=== PATIENT | female | born 1950 | race Caucasian/White ===

== ENCOUNTER → 2020-06-19 13:45 | Outpatient (BNVA) | payer BC, SELFPAY | PROVIDERS: PCP Internal Medicine; Referring Provider Internal Medicine; Visit Provider Nurse Practitioner Family ==

== ENCOUNTER 2020-06-20 07:19 | Outpatient (REF) | payer MEDICARE, SELFPAY ==
--- NOTE | 2020-06-20 07:38 | ECG_ITS ---
Test Reason : CARDIAC ARRHYTHMIAS Blood Pressure : / mmHG Vent. Rate : 074 BPM Atrial Rate : 074 BPM P-R Int : 156 ms QRS Dur : 078 ms QT Int : 392 ms P-R-T Axes : 063 035 045 degrees QTc Int : 435 ms Normal sinus rhythm Nonspecific ST abnormality Abnormal ECG When compared with ECG of 19-APR-2015 11:55, No significant change was found Referred By: Nathanael Moreno Electronically Signed By:Ezra Hickman
[2020-06-20 08:08] LABS: MANUAL DIFF FLAG NO
[2020-06-20 08:26] LABS: Basophils Absolute Auto 0.1 X10*3/uL (0.0-0.2); Basophils Percent Auto 1.1 % (0-2); Eosinophils Absolute Auto 0.3 X10*3/uL (0.0-0.4); Eosinophils Percent Auto 3.8 % (0-4); Hematocrit 44.4 % (37-47); Hemoglobin 14.8 g/dl (12.0-16.0); Imm Gran Abs Auto 0.03 X10*3/uL (0.00-0.03); Imm Gran Pct Auto 0.5 % (0.0-0.4); Lymphocytes Percent Auto 30.2 % (20-40); Mean Corpuscular HGB Conc 33.3 g/dl (31.0-35.0); Mean Corpuscular Hemoglobin 30.3 pg (27.0-33.0); Mean Platelet Volume 12.5 fL (9.4-12.3); Monocytes Absolute Auto 0.5 X10*3/uL (0.1-1.2); Monocytes Percent Auto 7.8 % (2-11); Neutrophils Absolute Auto 3.7 X10*3/uL (2.0-8.3); Neutrophils Percent Auto 56.6 % (45-73); Platelet Count 166 X10*3/uL (160-400); Red Blood Count 4.88 X10*6/uL (4.20-5.50); Red Cell Distribution Width 12.9 % (11.0-16.0); White Blood Count 6.6 X10*3/uL (4.8-10.8)
[2020-06-20 08:31] LABS: Anion Gap 13 (12-20); Blood Urea Nitrogen 20 mg/dL (9-16); Carbon Dioxide 28 mmol/L (22-29); Chloride 106 mmol/L (96-108); Potassium 4.2 mmol/L (3.3-5.1); Sodium 143 mmol/L (135-145)
[2020-06-20 08:32] LABS: Alanine Aminotransferase 31 U/L (0-31); Albumin Level 4.5 g/dL (3.5-5.0); Alkaline Phosphatase 53 U/L (39-117); Aspartate Amino Transferase 22 U/L (5-31); Bilirubin Total 0.7 mg/dL (0.0-1.0); Calcium 9.7 mg/dL (8.4-10.2); Cholesterol 210 mg/dL; Estimated Glomerular Filt Rate > 60; Glucose Random 106 mg/dL (60-115); HDL Cholesterol 49 mg/dL; LDL Cholesterol Calculated 144 mg/dl; Total Protein 6.9 g/dL (6.5-8.0); Triglycerides 86 mg/dL
[2020-06-20 08:54] LABS: Free T4 (Free Thyroxine) 1.06 ng/dL (0.71-1.85); Thyroid Stimulating Hormone 1.85 uIU/mL (0.32-4.0); Vitamin D 25-OH Total 42.5 ng/mL (>30)
[2020-06-20 09:19] LABS: Estimated Average Glucose 100 mg/dL; Hemoglobin A1c % 5.1 %
[2020-06-20 09:27] LABS: Glucose Urine UA NEG (NEG); Leukocyte Esterase Urine 1+ (NEG); Nitrite Urine NEG (NEG); PH 6.5 (5.0-8.0); Specific Gravity - Urine 1.025 (1.005-1.025); Urine Blood NEG (NEG); Urine Ketones NEG (NEG); Urine Protein NEG (NEG-TRACE)
[2020-06-20 09:34] LABS: Appearance Urine HAZY; Color Urine YELLOW
[2020-06-20 09:38] LABS: Folate 15.1 ng/mL (> or = 4.0); Vitamin B12 373 pg/mL (200-900)
[2020-06-20 09:50] LABS: Bacteria Urine 1+ /LPF; RBC Urine 0 /HPF (0); Squamous Epithelial Cell Urine 3+ /LPF
== END 2020-06-20 07:20 | disposition home or self-care (01) ==
LOC: HO.LAB 07:19
PROVIDERS: PCP Internal Medicine; Visit Provider Internal Medicine
DX: I49.9 Cardiac arrhythmia, unspecified (principal); E78.00 Pure hypercholesterolemia, unspecified
CPT/HCPCS: 36415; 80053; 80061; 81001; 82306; 82607; 82746; 83036; 84439; 84443; 85025; 93005

== ENCOUNTER 2020-08-17 06:18 | Day surgery (SDC) | payer BC, SELFPAY ==
[2020-08-10 09:50] VITALS: BMI 30.2
--- NOTE | 2020-08-16 08:38 | P.CONAN_ITS ---
Documented by User: Consuelo Changney 08/16/20 09:44 HPI - Anesthesia Eval Consult details Narrative: 69yo F for Colonoscopy Per PCP patient is at low risk for any cardiac complications. No further workup needed this time T/C with Lina ENGAGEMENT SPECIALIST - PCP clearance OK, no cardiology visit needed. [facility] Active Problems Active Problems: All Active Problems (Updated 08/10/20 @ 09:34 by Destiny Oleary) Allergic rhinitis (Acute) Arrhythmia (Acute) Impaired glucose tolerance (Acute) Tubular adenoma of colon (Acute) Osteoarthritis (Acute) Hypercholesterolemia (Acute) Degenerative disc disease, lumbar (Acute) Anxiety (Acute) Past Medical History Medical History Anxiety Carpal tunnel syndrome on both sides Degenerative disc disease, lumbar History of COVID-19 Hypercholesterolemia Neck pain Obesity (BMI 30-39.9) Osteoarthritis Osteoarthritis of left knee Restless leg syndrome Thrombocytopenia Tubular adenoma of colon Varicose vein of leg Vitamin D deficiency Family History Family History Father Dementia Mother Lung cancer Brother Prostate cancer Surgical History Surgical History H/O breast biopsy H/O repair of rotator cuff History of colonoscopy History of stapedectomy History of surgery History of tonsillectomy History of total right knee replacement Social History Social History (Updated 08/10/20 @ 09:52 by Destiny Oleary) Alcohol intake: current Alcohol intake frequency: a few times a month Patient Tobacco Use Status: Former Tobacco user Quit Date: 2004 Use of substances other than those prescribed or required for medical reasons: Yes Substance Use Type: Marijuana Substance Use Frequency: Occasionally Are you DNR?: No Advance Directives: No Advance Directives Information Provided: No Advance Directives on File: No Meds Allergies Allergy/AdvReac Type Severity Reaction Status Date / Time amoxicillin [AMOXICILLIN] Allergy Severe ITCHINESS, Verified 08/17/20 06:32 hives, itching, scratchy throat feathers Allergy Severe ITCHINESS Verified 08/17/20 06:32 hydromorphone [HYDROMORPHONE] Allergy Severe REDNESS,itc Verified 08/17/20 06:32 maggie,hives penicillin V Allergy Severe Itching,hiv Verified 08/17/20 06:32 es shellfish derived Allergy Severe Hives, Verified 08/17/20 06:32 itching Sulfa (Sulfonamide Allergy Severe ITCHINESS,h Verified 08/17/20 06:32 Antibiotics) renetta [SULFA (SULFONAMIDE ANTIBIOTICS)] latex [LATEX] Allergy Intermediate SWELLING/HI Verified 08/17/20 06:32 VES succinylcholine Allergy Intermediate COULDN'T Verified 08/17/20 06:32 [SUCCINYLCHOLINE] MOVE LEGS levofloxacin [From LEVAQUIN] AdvReac Severe HALLUCINATI Verified 08/17/20 06:32 ONS clams Allergy Severe Anaphylaxis Uncoded 08/10/20 09:40 shell fish Allergy Severe Anaphylaxis Uncoded 08/10/20 09:46 NO MRI due to metal in the Allergy Unknown Unknown Uncoded 11/30/19 14:58 ear Home Medications Medication Instructions Recorded Confirmed Last Taken Type aspirin 81 mg tablet,delayed 81 mg PO 3XW tab 02/06/20 08/10/20 08/14/20 08:00 History release cetirizine 10 mg tablet 5 mg PO DAILY 02/06/20 08/10/20 08/17/20 06:15 History lorazepam 1 mg PO BEDTIME 08/10/20 08/10/20 Unknown History ropinirole 1 tab PO BEDTIME 08/10/20 08/10/20 Unknown History Exam Exam Date and Time: August 16, 2020 0838 Height,Weight and Vital Signs: Height 5 ft Weight 70.307 kg Narrative Narrative: EKG 06/2020 Vent. Rate : 074 BPM Atrial Rate : 074 BPM P-R Int : 156 ms QRS Dur : 078 ms QT Int : 392 ms P-R-T Axes : 063 035 045 degrees QTc Int : 435 ms Normal sinus rhythm Nonspecific ST abnormality Abnormal ECG When compared with ECG of 19-APR-2015 11:55, No significant change was found Assessment and Plan Assessment Anesthesia Assessment: Chart Reviewed Documented by User: Sushila Segura 08/17/20 07:10 [facility] Past Medical History Medical History Anxiety Carpal tunnel syndrome on both sides Degenerative disc disease, lumbar History of COVID-19 Hypercholesterolemia Neck pain Obesity (BMI 30-39.9) Osteoarthritis Osteoarthritis of left knee Restless leg syndrome Thrombocytopenia Tubular adenoma of colon Varicose vein of leg Vitamin D deficiency Family History Family History Father Dementia Mother Lung cancer Brother Prostate cancer Surgical History Surgical History H/O breast biopsy H/O repair of rotator cuff History of colonoscopy History of stapedectomy History of surgery History of tonsillectomy History of total right knee replacement Social History Social History (Updated 08/10/20 @ 09:52 by Destiny Oleary) Alcohol intake: current Alcohol intake frequency: a few times a month Patient Tobacco Use Status: Former Tobacco user Quit Date: 2004 Use of substances other than those prescribed or required for medical reasons: Yes Substance Use Type: Marijuana Substance Use Frequency: Occasionally Are you DNR?: No Advance Directives: No Advance Directives Information Provided: No Advance Directives on File: No Meds Allergies Allergy/AdvReac Type Severity Reaction Status Date / Time amoxicillin [AMOXICILLIN] Allergy Severe ITCHINESS, Verified 08/17/20 06:32 hives, itching, scratchy throat feathers Allergy Severe ITCHINESS Verified 08/17/20 06:32 hydromorphone [HYDROMORPHONE] Allergy Severe REDNESS,itc Verified 08/17/20 06:32 maggie,hives penicillin V Allergy Severe Itching,hiv Verified 08/17/20 06:32 es shellfish derived Allergy Severe Hives, Verified 08/17/20 06:32 itching Sulfa (Sulfonamide Allergy Severe ITCHINESS,h Verified 08/17/20 06:32 Antibiotics) renetta [SULFA (SULFONAMIDE ANTIBIOTICS)] latex [LATEX] Allergy Intermediate SWELLING/HI Verified 08/17/20 06:32 VES succinylcholine Allergy Intermediate COULDN'T Verified 08/17/20 06:32 [SUCCINYLCHOLINE] MOVE LEGS levofloxacin [From LEVAQUIN] AdvReac Severe HALLUCINATI Verified 08/17/20 06:32 ONS clams Allergy Severe Anaphylaxis Uncoded 08/10/20 09:40 shell fish Allergy Severe Anaphylaxis Uncoded 08/10/20 09:46 NO MRI due to metal in the Allergy Unknown Unknown Uncoded 11/30/19 14:58 ear Home Medications Medication Instructions Recorded Confirmed Last Taken Type aspirin 81 mg tablet,delayed 81 mg PO 3XW tab 02/06/20 08/10/20 08/14/20 08:00 History release cetirizine 10 mg tablet 5 mg PO DAILY 02/06/20 08/10/20 08/17/20 06:15 History lorazepam 1 mg PO BEDTIME 08/10/20 08/10/20 Unknown History ropinirole 1 tab PO BEDTIME 08/10/20 08/10/20 Unknown History Exam Airway Mallampati Class: II TM Dist: >3cm Neck ROM: Full Heart: rrr Lungs: cta Assessment and Plan Assessment Anesthesia Assessment: Anesthesia Plan Discussed and Chart Reviewed Final Anesthetic Review NPO: Yes ASA Class: II Final Preanesthetic Review: No Changes in Pt Med Stat and Consent Obtained/Reviewed Patient Risk: Intermediate Procedure Risk: Intermediate Anesthetic Plan Anesthetic Plan: MAC: Disposition: Standard PACU
[2020-08-17 06:42] VITALS: BP 139/73; PULSE 84; RESP 18; TEMP 36.5; O2SAT 97
[2020-08-17] MEDS: Lactated Ringers 1,000 ML 100 ML IVCONT (06:57)
--- NOTE | 2020-08-17 07:23 | P.HPSUR_ITS ---
Pre-Procedural Eval Section A Date of Service: 08/17/20 The patient is an INPATIENT: No The History & Physical has been completed within 30 days and I have reviewed it.: No Section B Chief Complaint: benign neoplasm Details of Present Illness: colon cancer screening, hx of colon polyps Relevant Family History (Specify if Yes): No Relevant Social History: Tobacco Use (former smoker) Present Medications: see Short Stay Collaborative assessment Medical History: Significant History (nxiety Carpal tunnel syndrome on both sides Degenerative disc disease, lumbar Hypercholesterolemia Obesity (BMI 30- 39.9) Osteoarthritis Osteoarthritis of left knee Restless leg syndrome Thrombocytopenia Tubular adenoma of colon Varicose vein of leg Vitamin D deficiency) History of Previous Operations: Relevant previous surgery/procedure and date(s) (H/O breast biopsy H/O repair of rotator cuff History of colonoscopy History of stapedectomy History of surgery History of tonsillectomy History of total right knee replacement) Allergies: Allergies Allergy/AdvReac Type Severity Reaction Status Date / Time amoxicillin [AMOXICILLIN] Allergy Severe ITCHINESS, Verified 08/17/20 06:32 hives, itching, scratchy throat feathers Allergy Severe ITCHINESS Verified 08/17/20 06:32 hydromorphone [HYDROMORPHONE] Allergy Severe REDNESS,itc Verified 08/17/20 06:32 maggie,hives penicillin V Allergy Severe Itching,hiv Verified 08/17/20 06:32 es shellfish derived Allergy Severe Hives, Verified 08/17/20 06:32 itching Sulfa (Sulfonamide Allergy Severe ITCHINESS,h Verified 08/17/20 06:32 Antibiotics) renetta [SULFA (SULFONAMIDE ANTIBIOTICS)] latex [LATEX] Allergy Intermediate SWELLING/HI Verified 08/17/20 06:32 VES succinylcholine Allergy Intermediate COULDN'T Verified 08/17/20 06:32 [SUCCINYLCHOLINE] MOVE LEGS levofloxacin [From LEVAQUIN] AdvReac Severe HALLUCINATI Verified 08/17/20 06:32 ONS clams Allergy Severe Anaphylaxis Uncoded 08/10/20 09:40 shell fish Allergy Severe Anaphylaxis Uncoded 08/10/20 09:46 NO MRI due to metal in the Allergy Unknown Unknown Uncoded 11/30/19 14:58 ear Review of Systems Sugical H&P ROS: Negative: Cardiovascular, Respiratory and Gastrointestinal and Yes, Specify: Constitution (Obese) Exam Surgical H&P Exam: Normal: Heart, Normal: Lungs, Normal: Extremities and Normal: Abdomen Plan Diagnosis/Plan: Unchanged I have reviewed the history and physical and performed a pertinent physical examination on my patient. No changes have occurred unless specified.
--- NOTE | 2020-08-17 07:23 | P.OP_ITS ---
Operative Note Operative Note Date of Service: 08/17/20 Narrative: Pre-op diagnosis: Colon cancer screening Post-op diagnosis: other ( colon polyps, diverticulosis, hemorrhoids) Procedure: COLONOSCOPY TILL CECUM WITH BIOPSIES Consent: Indications for the procedure and potential complications of bleeding, perforation, reaction to medications and missed diagnosis were discussed with the patient and informed consent was obtained. Instrument: Olympus PCF H 190 L variable stiffness pediatric colonoscope Monitoring: Vital signs and clinical assessment, intermittent blood pressure monitoring, continuous EKG monitoring, Pulse oximetry and Carbon Dioxide monitoring were done throughout the procedure. Colon withdrawl time was 15 minutes. Procedure: The patient was placed in the left lateral decubitis position and pre-procedure medications were administered. After a digital rectal examination of the ano-rectum, the video colonoscope was inserted into the rectum and advanced through the colon to the cecum. The colonoscope was slowly withdrawn in a retrograde panoramic fashion and the colon mucosa was carefully examined including a retroflexed view of the rectum. Findings and interventions are described below. Procedure Difficulty: Without difficulty Findings: Terminal Ileum: Not evaluated Cecum: a 3-4 mm sessile polyp removed with a cold biopsy Ascending Colon: Two 4-5 mm sessile polyps removed with a cold biopsy and moderate diverticulosis Transverse Colon: moderate diverticulosis Descending Colon: moderate diverticulosis Sigmoid Colon: Moderate diverticulosis Rectum: Normal Ano-rectum: Small internal hemorrhoids and perianal skin tags Colon preparation: Good after some irrigation Impression and Post Procedure Diagnosis: Colonoscopy Findings: Three small polyps removed Moderate diverticulosis seen in the entire colon Small hemorrhoids on retroflexed exam. Plan: Await pathology results Patient has an appointment on 08/24/20 in the [facility] with Melissa Webster FNP- [facility] . Repeat Colonoscopy interval based on path results - in 3-5 years if polyps are adenomatous and due to a hx of adenomatous colon polyps. Above findings were reviewed with the patient and colon polyps and diverticulosis handouts were given in the discharge area Surgeon: Neri Anaya MD Anesthesia: MAC (Dr Mistry) Was an Cash Applications Analyst used for this Procedure?: Yes Cash Applications Analyst: Akil Jimenez Estimated blood loss (mL): 0 Pathology: other (A- POLYP CECUM B- ASCENDING COLON POLYPS) Condition: stable Disposition: PACU
[2020-08-17 08:11] VITALS: BP 113/65; PULSE 76; RESP 16; TEMP 36.4; O2SAT 95
[2020-08-17 08:26] VITALS: BP 105/64; PULSE 73; RESP 16; O2SAT 95
[2020-08-17 08:29] VITALS: BP 122/73; PULSE 73; RESP 18; TEMP 36.4; O2SAT 95
== END 2020-08-17 09:22 | disposition home or self-care (01) ==
PROVIDERS: PCP Internal Medicine; Visit Provider Internal Medicine Gastroenterology
PROC: 0DJD8ZZ Inspection of Lower Intestinal Tract, Via Natural or Artificial Opening Endoscopic (ICD-10-PCS; CPT 45378; principal; 2020-08-17 07:30)
DX: Z12.11 Encounter for screening for malignant neoplasm of colon (principal); Z86.010 Personal history of colon polyps; D12.2 Benign neoplasm of ascending colon; K63.5 Polyp of colon; K57.30 Diverticulosis of large intestine without perforation or abscess without bleeding; K64.8 Other hemorrhoids; K64.4 Residual hemorrhoidal skin tags; K58.9 Irritable bowel syndrome, unspecified; D69.6 Thrombocytopenia, unspecified; Z86.16 Personal history of COVID-19; Z79.82 Long term (current) use of aspirin; Z79.899 Other long term (current) drug therapy; Z88.1 Allergy status to other antibiotic agents; Z88.2 Allergy status to sulfonamides; Z88.8 Allergy status to other drugs, medicaments and biological substances; Z91.040 Latex allergy status; Z87.891 Personal history of nicotine dependence
CPT/HCPCS: 45380; 88305

== ENCOUNTER → 2020-08-24 12:45 | Outpatient (BNVA) | payer BC, SELFPAY | PROVIDERS: PCP Internal Medicine; Referring Provider Internal Medicine; Visit Provider Nurse Practitioner Family ==

== ENCOUNTER 2020-11-13 07:40 | Outpatient (REF) | payer MEDICARE, SELFPAY ==
[2020-11-13 09:00] LABS: Alanine Aminotransferase 34 U/L (0-31); Albumin Level 4.3 g/dL (3.5-5.0); Alkaline Phosphatase 50 U/L (39-117); Anion Gap 13 (12-20); Aspartate Amino Transferase 23 U/L (5-31); Bilirubin Total 0.9 mg/dL (0.0-1.0); Blood Urea Nitrogen 17 mg/dL (9-16); Calcium 9.5 mg/dL (8.4-10.2); Carbon Dioxide 26 mmol/L (22-29); Chloride 108 mmol/L (96-108); Cholesterol 195 mg/dL; Estimated Glomerular Filt Rate > 60; Glucose Random 106 mg/dL (60-115); HDL Cholesterol 42 mg/dL; LDL Cholesterol Calculated 134 mg/dl; Potassium 4.2 mmol/L (3.3-5.1); Sodium 143 mmol/L (135-145); Total Protein 6.6 g/dL (6.5-8.0); Triglycerides 98 mg/dL
[2020-11-13 09:05] LABS: Estimated Average Glucose 97 mg/dL
[2020-11-13 09:21] LABS: Appearance Urine CLEAR; Color Urine STRAW; Glucose Urine UA NEG (NEG); Leukocyte Esterase Urine NEG (NEG); Nitrite Urine NEG (NEG); Urine Blood NEG (NEG); Urine Ketones NEG (NEG); Urine Protein NEG (NEG-TRACE)
[2020-11-13 09:37] LABS: RBC Urine 0-2 /HPF (0); Squamous Epithelial Cell Urine 1+ /LPF; WBC Urine 0-2 /HPF (0-4)
[2020-11-17 00:31] LABS: Magnesium, RBC 7.1 mg/dL (4.0-6.4)
[2020-11-18 22:51] LABS: Estrogen 126.3 pg/mL
== END 2020-11-13 07:41 | disposition home or self-care (01) ==
LOC: HO.LAB 07:40
PROVIDERS: PCP Internal Medicine; Visit Provider Internal Medicine
DX: E78.00 Pure hypercholesterolemia, unspecified (principal); F41.9 Anxiety disorder, unspecified; I49.9 Cardiac arrhythmia, unspecified; R73.02 Impaired glucose tolerance (oral); M85.80 Other specified disorders of bone density and structure, unspecified site; Z12.31 Encounter for screening mammogram for malignant neoplasm of breast
CPT/HCPCS: 36415; 80053; 80061; 81001; 82672; 83036; 83735

== ENCOUNTER 2020-11-13 08:19 | Outpatient (REF) | payer MEDICARE, SELFPAY ==
--- NOTE | ~2020-11-13 | MM_ITS ---
EXAMINATION: BONE DENSITOMETRY CLINICAL INDICATION: Osteopenia. COMPARISON: Previous BD dated 10/15/2017 and baseline BD dated 05/22/2006. TECHNIQUE: Using a [employer] DXA System (software version: 13.1) manufactured by [employer], dual-energy x-ray absorptiometry was performed of the lumbar spine and left hip. The images are of good technical quality. Summary results are attached. FINDINGS: AP SPINE L1-L4: Current: BMD 1.074 g/cm2, Z-score 0.5, T-score -0.9, normal, 7.3% decrease from previous, 1.5% decrease from baseline (<5% change is not significant). Prior: BMD 1.158 g/cm2. Baseline: BMD 1.090 g/cm2. LEFT FEMUR, NECK: Current: BMD 0.685 g/cm2, Z-score -1.0, T-score -2.5, osteoporosis. Prior: BMD 0.811 g/cm2. Baseline: BMD 0.796 g/cm2. LEFT FEMUR, TOTAL: Current: BMD 0.862 g/cm2, Z-score 0.1, T-score -1.2, osteopenia, 3.7% decrease from previous, 8.9% decrease from baseline (<5% change is not significant). Prior: BMD 0.895 g/cm2. Baseline: BMD 0.946 g/cm2. IDENTIFIED RISK FACTORS: Menopause. HISTORY OF FRACTURE: None listed. MEDICATIONS: Calcium, vitamin D. MM/XR DEXA axial skeleton IMPRESSION: 1. DIAGNOSIS: Osteoporosis based on the lowest T-score value of -2.5 in the femoral neck applying World Health Organization criteria. 2. 10-YEAR FRACTURE RISK PREDICTION, FRAX: Major osteoporotic fracture (clinical spine, forearm, hip or shoulder) 14.5%. Hip fracture 3.8%. 3. Treatment Recommendations: NOF guidelines recommend consideration for treatment in postmenopausal women and men age 50 and older presenting with the following: -A hip or vertebral (clinical or morphometric) fracture. -T-score less than or equal to -2.5 at the femoral neck or spine after appropriate evaluation to exclude secondary causes. -Low bone mass at the hip or spine and a 10-year fracture probability by FRAX of greater than or equal to 3% for hip fracture or greater than or equal to 20% for major osteoporotic fracture based on the [place] adapted WHO algorithm. 4. Other Recommendations: All treatment decisions require clinical judgment and consideration of individual patient factors, including patient preferences, comorbidities, previous drug use, risk factors not captured in the FRAX model (e.g. frailty, falls, vitamin D deficiency, increased bone turnover, interval significant decline in bone density) and possible under or overestimation of fracture risk by FRAX. Additional medical evaluation for secondary cause of low bone mineral density may be appropriate. FUTURE SCAN RECOMMENDATION: People with diagnosed cases of osteoporosis or at high risk for fracture should have regular bone mineral density tests. For patients eligible for Medicare, routine testing is allowed once every 2 years. The testing frequency can be increased to one year for patients who have rapidly progressing disease, those who are receiving or discontinuing medical therapy to restore bone mass, or have additional risk factors.
--- NOTE | ~2020-11-13 | MM_ITS ---
EXAMINATION: MM SCREENING DIGITAL BREAST TOMOSYNTHESIS, BILATERAL CLINICAL INFORMATION: Screening. Asymptomatic. The lifetime risk of breast cancer based on the Tyrer-Cuzick Model is 3%. COMPARISON: Mammography: 12/02/2018, 10/15/2017, 09/16/2016 TECHNIQUE: Digital breast tomosynthesis is performed in both the craniocaudal and mediolateral oblique views along with computer-aided detection (CAD). Synthesized 2D images are generated from the tomosynthesis. FINDINGS: There are scattered areas of fibroglandular density (ACR BI-RADS breast composition Category b). There are no significant masses, abnormal calcifications, or other abnormalities. Breast tissue composition borders on heterogeneously dense. There is fine fibronodular parenchymal pattern similar to prior exams. Biopsy clip marker again seen mid upper outer right breast. Skin contours are smooth. MM/MM tomosynthesis screening BI IMPRESSION: No mammographic evidence of malignancy. ASSESSMENT: BI-RADS 2: Benign RECOMMENDATION: Routine annual mammography screening. This patient's information was entered into a reminder system with a target due date for their next mammogram.
== END 2020-11-13 08:20 | disposition home or self-care (01) ==
LOC: HO.MAMMO 08:19
PROVIDERS: Visit Provider Internal Medicine
DX: Z12.31 Encounter for screening mammogram for malignant neoplasm of breast (principal); M85.80 Other specified disorders of bone density and structure, unspecified site; Z78.0 Asymptomatic menopausal state; R73.02 Impaired glucose tolerance (oral); I49.9 Cardiac arrhythmia, unspecified; E78.00 Pure hypercholesterolemia, unspecified; F41.9 Anxiety disorder, unspecified
CPT/HCPCS: 77063; 77067; 77080

== ENCOUNTER 2021-06-24 07:34 | Outpatient (REF) | payer MEDICARE, SELFPAY ==
[2021-06-24 07:53] LABS: MANUAL DIFF FLAG NO
[2021-06-24 08:04] LABS: Basophils Absolute Auto 0.1 X10*3/uL (0.0-0.2); Basophils Percent Auto 1.3 % (0-2); Eosinophils Absolute Auto 0.2 X10*3/uL (0.0-0.4); Eosinophils Percent Auto 3.1 % (0-4); Hematocrit 41.9 % (37.0-47.0); Imm Gran Abs Auto 0.03 X10*3/uL (0.00-0.03); Imm Gran Pct Auto 0.5 % (0.0-0.4); Lymphocytes Absolute Auto 1.8 X10*3/uL (1.2-4.9); Lymphocytes Percent Auto 29.8 % (20-40); Mean Corpuscular HGB Conc 33.4 g/dl (31.0-35.0); Mean Corpuscular Hemoglobin 30.4 pg (27.0-33.0); Mean Corpuscular Volume 90.9 fL (80.0-98.0); Mean Platelet Volume 12.3 fL (9.4-12.3); Monocytes Absolute Auto 0.5 X10*3/uL (0.1-1.2); Monocytes Percent Auto 8.9 % (2-11); Neutrophils Absolute Auto 3.4 x10*3/uL (2.0-8.3); Neutrophils Percent Auto 56.4 % (45-73); Platelet Count 138 X10*3/uL (160-400); Red Blood Count 4.61 X10*6/uL (4.20-5.50); Red Cell Distribution Width 13.1 % (11.0-16.0)
[2021-06-24 08:22] LABS: Estimated Average Glucose 100 mg/dL; Hemoglobin A1c % 5.1 %
[2021-06-24 08:36] LABS: Alanine Aminotransferase 26 U/L (0-31); Alkaline Phosphatase 51 U/L (39-117); Anion Gap 9 (12-20); Aspartate Amino Transferase 19 U/L (5-31); Bilirubin Total 0.9 mg/dL (0.0-1.0); Blood Urea Nitrogen 18 mg/dL (9-16); Calcium 9.8 mg/dL (8.4-10.2); Carbon Dioxide 28 mmol/L (22-29); Chloride 110 mmol/L (96-108); Cholesterol 179 mg/dL; Estimated Glomerular Filt Rate > 60; Glucose Random 105 mg/dL (60-115); HDL Cholesterol 45 mg/dL; LDL Cholesterol Calculated 119 mg/dl; Magnesium 2.1 mg/dL (1.6-2.6); Potassium 4.3 mmol/L (3.3-5.1); Sodium 143 mmol/L (135-145); Total Protein 6.6 g/dL (6.5-8.0); Triglycerides 79 mg/dL
[2021-06-24 08:56] LABS: Free T4 (Free Thyroxine) 1.06 ng/dL (0.71-1.85); Thyroid Stimulating Hormone 1.72 uIU/mL (0.32-4.0); Vitamin D 25-OH Total 39.4 ng/mL (>30)
[2021-06-24 10:00] LABS: Folate 12.8 ng/mL (> or = 4.0); Vitamin B12 390 pg/mL (200-900)
== END 2021-06-24 07:35 | disposition home or self-care (01) ==
LOC: HO.LAB 07:34
PROVIDERS: PCP Internal Medicine; Visit Provider Internal Medicine
DX: E78.00 Pure hypercholesterolemia, unspecified (principal); R73.02 Impaired glucose tolerance (oral); E55.9 Vitamin D deficiency, unspecified
CPT/HCPCS: 36415; 80053; 80061; 82306; 82607; 82746; 83036; 83735; 84439; 84443; 85025

== ENCOUNTER 2021-11-11 12:48 | Outpatient (REF) | payer MEDICARE, SELFPAY ==
[2021-11-12 12:23] LABS: Influenza A PCR NEGATIVE (Negative); Influenza B PCR NEGATIVE (Negative); Resp Syncy Virus RNA Qual PCR NEGATIVE (Negative); SARS COV2 PCR INHOUSE NEGATIVE (Negative)
== END 2021-11-11 12:49 | disposition home or self-care (01) ==
LOC: HO.LNP 12:48
PROVIDERS: Visit Provider Nurse Practitioner Family
DX: J06.9 Acute upper respiratory infection, unspecified (principal); Z20.822 Contact with and (suspected) exposure to COVID-19
CPT/HCPCS: 0241U

== ENCOUNTER 2021-11-26 10:40 | Outpatient (REF) | payer MEDICARE, SELFPAY ==
--- NOTE | ~2021-11-26 | MM_ITS ---
EXAMINATION: MM SCREENING DIGITAL BREAST TOMOSYNTHESIS, BILATERAL CLINICAL INFORMATION: Screening. Asymptomatic. The lifetime risk of breast cancer based on the Tyrer-Cuzick Model is 3%. COMPARISON: Mammography: 11/13/2020, 12/02/2018, 10/15/2017 TECHNIQUE: Digital breast tomosynthesis is performed in both the craniocaudal and mediolateral oblique views along with computer-aided detection (CAD). Synthesized 2D images are generated from the tomosynthesis. FINDINGS: There are scattered areas of fibroglandular density (ACR BI-RADS breast composition Category b). Parenchymal pattern is similar to prior studies. There is fine fibronodular parenchymal pattern without developing density or interval architectural abnormality or abnormal calcifications. Biopsy clip marker again seen mid outer right breast. The axilla and skin contours are unremarkable. MM/MM tomosynthesis screening BI IMPRESSION: No mammographic evidence of malignancy. ASSESSMENT: BI-RADS 2: Benign RECOMMENDATION: Routine annual mammography screening. This patient's information was entered into a reminder system with a target due date for their next mammogram.
== END 2021-11-26 10:41 | disposition home or self-care (01) ==
LOC: HO.MAMMO 10:40
PROVIDERS: PCP Internal Medicine; Visit Provider Internal Medicine
DX: Z12.31 Encounter for screening mammogram for malignant neoplasm of breast (principal)
CPT/HCPCS: 77063; 77067

== ENCOUNTER 2022-06-17 09:41 | Outpatient (REF) | payer MEDICARE, SELFPAY ==
[2022-06-17 09:53] LABS: MANUAL DIFF FLAG NO
[2022-06-17 10:01] LABS: Basophils Absolute Auto 0.1 X10*3/uL (0.0-0.2); Basophils Percent Auto 1.2 % (0-2); Eosinophils Absolute Auto 0.2 X10*3/uL (0.0-0.4); Eosinophils Percent Auto 3.3 % (0-4); Hematocrit 43.2 % (37.0-47.0); Hemoglobin 14.3 g/dl (12.0-16.0); Imm Gran Abs Auto 0.02 X10*3/uL (0.00-0.03); Imm Gran Pct Auto 0.4 % (0.0-0.4); Lymphocytes Absolute Auto 2.3 X10*3/uL (1.2-4.9); Lymphocytes Percent Auto 40.3 % (20-40); Mean Corpuscular HGB Conc 33.1 g/dl (31.0-35.0); Mean Corpuscular Volume 90.8 fL (80.0-98.0); Mean Platelet Volume 11.2 fL (9.4-12.3); Monocytes Absolute Auto 0.5 X10*3/uL (0.1-1.2); Monocytes Percent Auto 9.1 % (2-11); Neutrophils Absolute Auto 2.6 x10*3/uL (2.0-8.3); Neutrophils Percent Auto 45.7 % (45-73); Platelet Count 150 X10*3/uL (160-400); Red Blood Count 4.76 X10*6/uL (4.20-5.50); Red Cell Distribution Width 13.1 % (11.0-16.0); White Blood Count 5.7 X10*3/uL (4.8-10.8)
[2022-06-17 11:01] LABS: Estimated Average Glucose 100 mg/dL; Hemoglobin A1c % 5.1 %
[2022-06-17 12:19] LABS: Alanine Aminotransferase 30 U/L (0-31); Albumin Level 4.3 g/dL (3.5-5.0); Alkaline Phosphatase 39 U/L (39-117); Anion Gap 9 (12-20); Aspartate Amino Transferase 22 U/L (5-31); Bilirubin Total 1.5 mg/dL (0.0-1.0); Blood Urea Nitrogen 16 mg/dL (9-16); Carbon Dioxide 30 mmol/L (22-29); Chloride 109 mmol/L (96-108); Cholesterol 187 mg/dL; Estimated Glomerular Filt Rate > 60; Glucose Random 98 mg/dL (60-115); HDL Cholesterol 38 mg/dL; LDL Cholesterol Calculated 132 mg/dl; Potassium 4.3 mmol/L (3.3-5.1); Sodium 144 mmol/L (135-145); Total Protein 6.6 g/dL (6.5-8.0); Triglycerides 89 mg/dL
[2022-06-17 12:35] LABS: Folate 12.1 ng/mL (> or = 4.0); Free T4 (Free Thyroxine) 1.25 ng/dL (0.71-1.85); Thyroid Stimulating Hormone 1.23 uIU/mL (0.32-4.0); Vitamin B12 429 pg/mL (200-900); Vitamin D 25-OH Total 53.1 ng/mL (>30)
== END 2022-06-17 09:42 | disposition home or self-care (01) ==
LOC: HO.LAB 09:41
PROVIDERS: PCP Internal Medicine; Visit Provider Internal Medicine
DX: R73.02 Impaired glucose tolerance (oral) (principal); E78.00 Pure hypercholesterolemia, unspecified; M81.0 Age-related osteoporosis without current pathological fracture
CPT/HCPCS: 36415; 80053; 80061; 82306; 82607; 82746; 83036; 84439; 84443; 85025

== ENCOUNTER 2022-10-20 11:02 | Outpatient (REF) | payer MEDICARE, SELFPAY ==
[2022-10-20 14:08] LABS: MANUAL DIFF FLAG NO
[2022-10-20 14:30] LABS: Basophils Absolute Auto 0.1 X10*3/uL (0.0-0.2); Basophils Percent Auto 1.3 % (0-2); Eosinophils Absolute Auto 0.2 X10*3/uL (0.0-0.4); Eosinophils Percent Auto 2.7 % (0-4); Hematocrit 45.8 % (37.0-47.0); Hemoglobin 15.1 g/dl (12.0-16.0); Imm Gran Abs Auto 0.02 X10*3/uL (0.00-0.03); Imm Gran Pct Auto 0.3 % (0.0-0.4); Lymphocytes Absolute Auto 2.3 X10*3/uL (1.2-4.9); Lymphocytes Percent Auto 34.5 % (20-40); Mean Corpuscular Hemoglobin 30.5 pg (27.0-33.0); Mean Corpuscular Volume 92.5 fL (80.0-98.0); Mean Platelet Volume 12.9 fL (9.4-12.3); Monocytes Absolute Auto 0.6 X10*3/uL (0.1-1.2); Monocytes Percent Auto 8.6 % (2-11); Neutrophils Absolute Auto 3.6 x10*3/uL (2.0-8.3); Neutrophils Percent Auto 52.6 % (45-73); Platelet Count 177 X10*3/uL (160-400); Red Blood Count 4.95 X10*6/uL (4.20-5.50); Red Cell Distribution Width 12.9 % (11.0-16.0); White Blood Count 6.8 X10*3/uL (4.8-10.8)
[2022-10-20 14:41] LABS: Estimated Average Glucose 94 mg/dL; Hemoglobin A1c % 4.9 % (<6.0)
[2022-10-20 15:02] LABS: Alanine Aminotransferase 26 U/L (0-31); Albumin Level 4.3 g/dL (3.5-5.0); Alkaline Phosphatase 51 U/L (39-117); Anion Gap 11 (12-20); Aspartate Amino Transferase 22 U/L (5-31); Bilirubin Total 0.8 mg/dL (0.0-1.0); Blood Urea Nitrogen 14 mg/dL (9-16); C Reactive Protein 0.14 mg/dL (< or = 0.50); Calcium 10.1 mg/dL (8.4-10.2); Carbon Dioxide 28 mmol/L (22-29); Chloride 108 mmol/L (96-108); Estimated Glomerular Filt Rate > 60; Glucose Random 87 mg/dL (60-115); Magnesium 2.1 mg/dL (1.6-2.6); Sodium 143 mmol/L (135-145); Total Protein 7.1 g/dL (6.5-8.0)
[2022-10-20 15:07] LABS: Ferritin 199 ng/mL (10-250); Free T4 (Free Thyroxine) 1.01 ng/dL (0.71-1.85); Thyroid Stimulating Hormone 1.69 uIU/mL (0.32-4.0); Vitamin D 25-OH Total 57.3 ng/mL (>30)
[2022-10-20 15:11] LABS: Erythrocyte Sedimentation Rate 7 MM/HR (0-20)
[2022-10-20 15:16] LABS: Folate 11.6 ng/mL (> or = 4.0); Vitamin B12 387 pg/mL (200-900)
[2022-10-21 13:17] LABS: Rheumatoid Factor < 13.0 IU/mL (<15.0)
[2022-10-22 05:23] LABS: Lyme Abs Screen <0.90 index
== END 2022-10-20 11:03 | disposition home or self-care (01) ==
LOC: HO.WFDLDS 11:02
PROVIDERS: Visit Provider Internal Medicine
DX: M51.36 Other intervertebral disc degeneration, lumbar region (principal); E83.41 Hypermagnesemia; R73.02 Impaired glucose tolerance (oral); M19.90 Unspecified osteoarthritis, unspecified site; M81.0 Age-related osteoporosis without current pathological fracture; E78.00 Pure hypercholesterolemia, unspecified; E66.9 Obesity, unspecified
CPT/HCPCS: 36415; 80053; 82306; 82607; 82728; 82746; 83036; 83735; 84439; 84443; 85025; 85652; 86140; 86431; 86617; 86618

== ENCOUNTER 2022-10-21 12:38 | Outpatient (REF) | payer MEDICARE, SELFPAY | END 2022-10-21 12:39 | disposition home or self-care (01) | LOC: HO.WFDLDS 12:38 | PROVIDERS: Visit Provider Internal Medicine | DX: Z13.89 Encounter for screening for other disorder (principal) ==

== ENCOUNTER 2022-10-28 10:57 | Outpatient (AMB) | payer MEDICARE, SELFPAY ==
--- NOTE | 2022-10-28 10:58 | MHC.PC.OV ---
Vital Signs 10/28/22 10:59 Height 5 ft Weight 158 lb 8 oz BMI 31.0 BP 142/80 H Blood Pressure Location Lt brachial Position Sitting Pulse 75 Pulse Source Pulse Oximeter Pulse Oximetry (%) 97 Oxygen Delivery Method Room Air Intake Visit Reasons: Annual Exam Intake Note: Patient here for an annual physical exam Counter Helper Required: No Accompanied by: Self / Same As Patient Allergies amoxicillin [AMOXICILLIN] Allergy (Severe, Verified 10/28/22 11:02) ITCHINESS, hives, itching, scratchy throat feathers Allergy (Severe, Verified 10/28/22 11:02) ITCHINESS hydromorphone [HYDROMORPHONE] Allergy (Severe, Verified 10/28/22 11:02) REDNESS,itching,hives penicillin V Allergy (Severe, Verified 10/28/22 11:02) Itching,hives shellfish derived Allergy (Severe, Verified 10/28/22 11:02) Hives, itching Sulfa (Sulfonamide Antibiotics) [SULFA (SULFONAMIDE ANTIBIOTICS)] Allergy (Severe, Verified 10/28/22 11:02) ITCHINESS,hives latex [LATEX] Allergy (Intermediate, Verified 10/28/22 11:02) SWELLING/HIVES levofloxacin [From LEVAQUIN] Adverse Reaction (Severe, Verified 10/28/22 11:02) HALLUCINATIONS montelukast [From Singulair] Adverse Reaction (Intermediate, Verified 10/28/22 11:02) RLS clams Allergy (Severe, Uncoded 07/01/22 11:29) Anaphylaxis shell fish Allergy (Mild, Uncoded 07/01/22 11:29) Anaphylaxis NO MRI due to metal in the ear Allergy (Unknown, Uncoded 07/01/22 11:29) Unknown Medication List - Last Reconciled 10/28/22 by Nathanael Moreno, albuterol sulfate 90 mcg/actuation (ProAir HFA) 2 puffs inhalation Q6H PRN calcium carbonate (Tums) 200 mg PO BID calcium [id number] no.[id number] 260 mg calcium- 25 mcg-50 mg (Alive Calcium-Vitamin D3) 1 tab PO .QD cetirizine (Zyrtec) 10 mg PO DAILY clotrimazole-betamethasone 1-0.05 % 1 appl topical BID 2 weeks eszopiclone (Lunesta) 3 mg PO BEDTIME 90 days vitamin P-rrimpnkonjnb-rcxdkau 500 mg (Emergen-C) 1 tab PO BID zinc gluconate 50 mg PO DAILY Tobacco use date assessed: 07/01/22 Fall risk assessment: No Falls in past year Last assessed Fall Risk: 10/28/22 Dental Screening Dental Screen Date: 10/28/22 Did you have a dental visit in the last 12 months?: Yes Did you have a dental problem in the last 6 months where you did not have access to dental care?: No Was dental information given to patient?: Patient has dentist HPI Annual Exam HPI Details 72-year-old obese female with hypercholesterolemia impaired glucose tolerance osteoporosis last seen in June 2022 patient is here for annual well visit. Patient had elevated blood pressure the last time colonoscopy August 2020 mammogram due in November bone density November 2020 BP at home. goes to bathroom for BM TID [facility] Medical History (Updated 10/28/22 @ 11:41 by Nathanael Moreno MD) Neck pain History of COVID-19 Osteoarthritis Vitamin D deficiency Hypercholesterolemia Varicose vein of leg Carpal tunnel syndrome on both sides Tubular adenoma of colon Restless leg syndrome Thrombocytopenia Obesity (BMI 30-39.9) Degenerative disc disease, lumbar Anxiety Osteoarthritis of left knee Surgical History History of total right knee replacement H/O repair of rotator cuff History of surgery History of colonoscopy History of stapedectomy H/O breast biopsy History of tonsillectomy Family History Father Dementia Mother Lung cancer Brother Prostate cancer Social History (Updated 10/28/22 @ 11:45 by Nathanael Moreno MD) Housing: House Alcohol intake: current Alcohol intake frequency: a few times a month Patient Tobacco Use Status: Former Tobacco user Quit Date: 2004 Tobacco use type: Cigarette Years Smoked: quit 1999 e-Cigarette/Vaping Use: Never Used Second Hand Smoke Exposure: No Substance Use Type: Marijuana service: No Current occupational status: retired Cognitive needs: No Hearing needs: No Vision needs: Yes Questionnaire PHQ-9 Over the last 2 weeks, how often have you been bothered by any of the following problems? 1. Little interest or pleasure in doing things: not at all 2. Feeling down, depressed, or hopeless: not at all 3. Trouble falling or staying asleep, or sleeping too much: not at all 4. Feeling tired or having little energy: not at all 5. Poor appetite or overeating: not at all 6. Feeling bad about yourself - or that you are a failure or have let yourself or your family down: not at all 7. Trouble concentrating on things, such as reading the newspaper or watching television: not at all 8. Moving or speaking so slowly that other people could have noticed. Or the opposite - being so fidgety or restless that you have been moving around a lot more than usual: not at all 9. Thoughts that you would be better off or of hurting yourself in some way: not at all Total score: 0 Depression Screening Interpretation: Negative Source: Developed by Drs. Fausto Garcia, Corinna Barnes, Favio Dodd and colleagues, with an educational jeff from [employer]. Thrive Questionnaire Date Thrive assessed: 07/01/22 ISATU-7 AMB Questionnaire ISATU-7 Date ISATU - 7 assessed: 10/28/22 Feeling nervous, anxious, or on edge: 0 = Not at all Not being able to stop or control worryin = Not at all Worrying too much about different things: 0 = Not at all Trouble relaxin = Not at all Being so restless that it is hard to sit still: 0 = Not at all Becoming easily annoyed or irritable: 0 = Not at all Feeling afraid as if something awful might happen: 0 = Not at all Total ISATU-7 score (0-4 normal; 5-9 mild; 10-14 moderate; 15-21 severe): 0 Source: Developed by Drs. Fausto Garcia, Corinna Barnes, Favio Dodd and colleagues, with an educational jeff from [employer]. Review of Systems Const Denies poor appetite and Denies weakness Eyes Denies no additional complaints ENT Reports Normal hearing present, Denies dizziness, Denies nasal congestion, Denies tinnitus and Denies sore throat Card Denies chest pain, Denies syncope, Denies rapid heart rate and Denies dyspnea Resp Denies cough and Denies dyspnea GI Denies change in stool character, Reports constipation, Denies diarrhea, Denies nausea and Denies vomiting Denies urinary frequency, Denies difficulty voiding and Denies dysuria Neuro Reports Normal hearing present, Denies confusion, Denies dizziness, Denies syncope and Denies weakness Psych Denies confusion Physical exam (Primary Care) Vital Signs: Last Vital Signs Pulse 75 10/28/22 10:59 BP 142/80 H 10/28/22 10:59 Pulse Ox 97 10/28/22 10:59 Oxygen Delivery Method Room Air 10/28/22 10:59 BMI result Body Mass Index 31.0 Tobacco/Smoking Status: Tobacco use Status Tobacco use date assessed 07/01/22 10/28/22 11:03 Patient Tobacco Use Status Former Tobacco user 10/28/22 11:03 Tobacco use type Cigarette 10/28/22 11:03 e-Cigarette/Vaping Use Never Used 10/28/22 11:03 PHQ-9: PHQ-9 Score PHQ-9: Total score 0 10/28/22 11:03 Depression Screening Interpretation: Negative Thrive Assessment: Date of Thrive Assessment Date Thrive assessed 07/01/22 10/28/22 11:03 Const General: No confusion Orientation/consciousness: No confusion HENMT Head: Yes normocephalic Ears: external ears normal and TM's normal bilaterally Face and sinus: Yes normal facial exam Mouth: moist mucous membranes Throat: Yes tonsils normal Eyes Conjunctivae: conjunctivae normal Pupils: Equal, round and reactive pupils present and Pupil accommodation reflex normal Direct Ophthalmoscopy: normal light reflex Neck Neck: No lymphadenopathy Thyroid: Thyroid normal Chest Chest palpation & inspection: normal inspection of the chest Resp Effort & Inspection: normal respiratory effort and no audible wheezes Auscultation: clear to auscultation bilaterally, no crackles, no wheezes and lung sounds not diminished Cardio Rate: regular rate Rhythm: regular rhythm Peripheral pulses: radial pulses present and dorsalis pedis present GI Palpation (GI): no masses Auscultation: normal bowel sounds and normoactive bowel sounds Rectal Exam - Female: deferred Skin General skin exam: no rashes or lesions noted Rashes: no rashes Neuro General: No confusion Cranial nerves: Yes Equal, round and reactive pupils present and Yes Normal hearing present Cognition (Neuro): normal cognition Gait exam (Neuro): Normal gait present Motor exam (neuro): 5/5 motor strength present throughout Deep tendon reflexes (DTR's): Right brachioradialis reflex intensity grade: 2+, Left brachioradialis reflex intensity grade: 2+, Right patellar reflex intensity grade: 2+ and Left patellar reflex intensity grade: 2+ Extrem General: No edema Assessment and Plan Assessment & Plan (1) Obesity (BMI 30.0-34.9): Code(s): E66.9 - Obesity, unspecified Plan: Diet and exercise (2) Osteoporosis: Comment: November 2020 Code(s): M81.0 - Age-related osteoporosis without current pathological fracture Plan: Discussed about calcium and vitamin-D and medications to help with bone density (3) Impaired glucose tolerance: Code(s): R73.02 - Impaired glucose tolerance (oral) Plan: Decrease the amount of carbohydrate intake, pasta, bread, rice and potatoes are all sugar and that is aside from all the sweet stuff, remember that fruits are good but they are Sweet also. (4) Hypercholesterolemia: Code(s): E78.00 - Pure hypercholesterolemia, unspecified Plan: Avoid fried foods, chicken skin, eggs, butter margarine, pastries and meat. Be it pork or beef they have a lot of cholesterol LDL goal of less than 130 and triglyceride of less than 150 (5) Generalized anxiety disorder: Code(s): F41.1 - Generalized anxiety disorder (6) Blood pressure elevated without history of HTN: Code(s): R03.0 - Elevated blood-pressure reading, without diagnosis of hypertension Plan: Continue to monitor blood pressure (7) Annual physical exam: Code(s): Z00.00 - Encounter for general adult medical examination without abnormal findings Medications: New celecoxib (Celebrex) 200 mg PO DAILY 90 caps 1RF M19.90 - Unspecified osteoarthritis, unspecified site Refilled eszopiclone (Lunesta) 3 mg PO BEDTIME 90 days 90 tabs 0RF G47.00 - Insomnia, unspecified Coding Level of Care Code Est Pt Prev Care >65y(30990) Diagnoses Obesity (BMI 30.0-34.9) E66.9 Osteoporosis M81.0 Impaired glucose tolerance R73.02 Hypercholesterolemia E78.00 Generalized anxiety disorder F41.1 Blood pressure elevated without history of HTN R03.0 Annual physical exam Z00.00
[2022-10-28 10:59] VITALS: BP 142/80; PULSE 75; O2SAT 97; BMI 31.0
== END 2022-10-28 12:06 | disposition home or self-care (01) ==
PROVIDERS: Visit Provider Internal Medicine
DX: Z00.00 Encounter for general adult medical examination without abnormal findings (principal); E66.9 Obesity, unspecified; M81.0 Age-related osteoporosis without current pathological fracture; Z68.31 Body mass index [BMI] 31.0-31.9, adult; R73.02 Impaired glucose tolerance (oral); E78.00 Pure hypercholesterolemia, unspecified; F41.1 Generalized anxiety disorder; R03.0 Elevated blood-pressure reading, without diagnosis of hypertension
CPT/HCPCS: 99397

== ENCOUNTER 2023-06-26 08:33 | Outpatient (REF) | payer MEDICARE, SELFPAY ==
[2023-06-26 11:40] LABS: MANUAL DIFF FLAG NO
[2023-06-26 11:59] LABS: Basophils Absolute Auto 0.1 X10*3/uL (0.0-0.2); Basophils Percent Auto 1.2 % (0-2); Eosinophils Absolute Auto 0.1 X10*3/uL (0.0-0.4); Eosinophils Percent Auto 2.4 % (0-4); Hematocrit 43.7 % (37.0-47.0); Hemoglobin 14.7 g/dl (12.0-16.0); Imm Gran Abs Auto 0.03 X10*3/uL (0.00-0.03); Imm Gran Pct Auto 0.5 % (0.0-0.4); Lymphocytes Absolute Auto 1.6 X10*3/uL (1.2-4.9); Lymphocytes Percent Auto 26.7 % (20-40); Mean Corpuscular HGB Conc 33.6 g/dl (31.0-35.0); Mean Corpuscular Hemoglobin 31.6 pg (27.0-33.0); Mean Platelet Volume 12.6 fL (9.4-12.3); Monocytes Absolute Auto 0.5 X10*3/uL (0.1-1.2); Neutrophils Absolute Auto 3.6 x10*3/uL (2.0-8.3); Neutrophils Percent Auto 60.2 % (45-73); Platelet Count 159 X10*3/uL (160-400); Red Blood Count 4.65 X10*6/uL (4.20-5.50); Red Cell Distribution Width 13.4 % (11.0-16.0); White Blood Count 5.9 X10*3/uL (4.8-10.8)
[2023-06-26 12:07] LABS: Appearance Urine Cloudy; Color Urine Yellow; Glucose Urine UA Negative (Negative); Leukocyte Esterase Urine Negative (Negative); Nitrite Urine Negative (Negative); PH 7.5 (5.0-9.0); Specific Gravity - Urine 1.015 (1.005-1.025); Urine Blood Negative (Negative); Urine Ketones Negative (Negative); Urine Protein Negative (Neg-Trace)
[2023-06-26 12:11] LABS: Bacteria Urine None Seen (None Seen); Hyaline Casts Urine 0-2 /LPF (0-2); RBC Urine 0-2 /HPF (0-2); WBC Urine 0-5 /HPF (0-5)
[2023-06-26 12:31] LABS: Alanine Aminotransferase 17 U/L (0-31); Alkaline Phosphatase 39 U/L (39-117); Anion Gap 13 (12-20); Aspartate Amino Transferase 15 U/L (5-31); Bilirubin Total 1.2 mg/dL (0.0-1.0); Blood Urea Nitrogen 16 mg/dL (9-16); Calcium 9.8 mg/dL (8.4-10.2); Carbon Dioxide 25 mmol/L (22-29); Chloride 109 mmol/L (96-108); Cholesterol 172 mg/dL (<200); Estimated Glomerular Filt Rate > 60; Glucose Random 87 mg/dL (60-115); HDL Cholesterol 51 mg/dL (>40); LDL Cholesterol Calculated 107 mg/dL (<100); Potassium 3.8 mmol/L (3.3-5.1); Sodium 143 mmol/L (135-145); Total Protein 6.6 g/dL (6.5-8.0); Triglycerides 72 mg/dL (<150)
[2023-06-26 12:55] LABS: Free T4 (Free Thyroxine) 1.06 ng/dL (0.71-1.85); Thyroid Stimulating Hormone 1.25 uIU/mL (0.32-4.0)
[2023-06-26 12:56] LABS: Folate 11.2 ng/mL (> or = 4.0); Vitamin B12 297 pg/mL (200-900)
[2023-07-02 13:09] LABS: Testosterone, Total 36 ng/dL (2-45)
[2023-07-07 20:39] LABS: Estrogen 54 pg/mL
== END 2023-06-26 08:34 | disposition home or self-care (01) ==
LOC: HO.WFDLDS 08:33
PROVIDERS: Visit Provider Internal Medicine
DX: E78.00 Pure hypercholesterolemia, unspecified (principal); M81.0 Age-related osteoporosis without current pathological fracture; R30.0 Dysuria
CPT/HCPCS: 36415; 80053; 80061; 81001; 81003; 82607; 82672; 82746; 84403; 84439; 84443; 85025

== ENCOUNTER 2023-06-29 12:25 | Outpatient (AMB) | payer MEDICARE, SELFPAY ==
--- NOTE | 2023-06-29 12:41 | MHC.PC.OV ---
Vital Signs 06/29/23 12:42 Height 5 ft Weight 157 lb 0.4 oz BMI 30.7 BP 126/64 Blood Pressure Location Lt brachial Position Sitting Pulse 74 Pulse Source Pulse Oximeter Pulse Oximetry (%) 98 Oxygen Delivery Method Room Air Intake Visit Reasons: 6 Months F/U-cholesterol, IGT, insomnia Mushroom [employer] Media Mixer Required: No Allergies amoxicillin [AMOXICILLIN] Allergy (Severe, Verified 06/29/23 12:42) ITCHINESS, hives, itching, scratchy throat feathers Allergy (Severe, Verified 06/29/23 12:42) ITCHINESS hydromorphone [HYDROMORPHONE] Allergy (Severe, Verified 06/29/23 12:42) REDNESS,itching,hives penicillin V Allergy (Severe, Verified 06/29/23 12:42) Itching,hives shellfish derived Allergy (Severe, Verified 06/29/23 12:42) Hives, itching Sulfa (Sulfonamide Antibiotics) [SULFA (SULFONAMIDE ANTIBIOTICS)] Allergy (Severe, Verified 06/29/23 12:42) ITCHINESS,hives latex [LATEX] Allergy (Intermediate, Verified 06/29/23 12:42) SWELLING/HIVES levofloxacin [From LEVAQUIN] Adverse Reaction (Severe, Verified 06/29/23 12:42) HALLUCINATIONS montelukast [From Singulair] Adverse Reaction (Intermediate, Verified 06/29/23 12:42) RLS clams Allergy (Severe, Uncoded 06/29/23 12:42) Anaphylaxis shell fish Allergy (Mild, Uncoded 06/29/23 12:42) Anaphylaxis NO MRI due to metal in the ear Allergy (Unknown, Uncoded 06/29/23 12:42) Unknown Medication List - Last Reconciled 06/29/23 by Nathanael Moreno MD albuterol sulfate 90 mcg/actuation (ProAir HFA) 2 puffs inhalation Q6H PRN calcium carbonate (Tums) 200 mg PO BID calcium [id number] no.293 260 mg calcium- 25 mcg-50 mg (Alive Calcium-Vitamin D3) 1 tab PO .QD celecoxib (Celebrex) 200 mg PO DAILY cetirizine (Zyrtec) 10 mg PO DAILY clotrimazole-betamethasone 1-0.05 % 1 appl topical BID 2 weeks dicyclomine 10 mg PO TID eszopiclone (Lunesta) 3 mg PO BEDTIME 90 days omeprazole 20 mg PO .QOD Tobacco use date assessed: 07/01/22 Dental Screening Dental Screen Date: 10/28/22 Did you have a dental visit in the last 12 months?: Yes Did you have a dental problem in the last 6 months where you did not have access to dental care?: No Was dental information given to patient?: Patient has dentist HPI 6 Months F/U-cholesterol, IGT, insomnia HPI Details 72-year-old obese female with osteoporosis impaired glucose tolerance hypercholesterolemia generalized anxiety disorder last seen for physical in October 2022. Noted to have an elevated blood pressure at that time. Patient's colonoscopy up-to-date August 2020 mammogram recorded last November 2021. bone density pap and mammo scheduled already. patient is asking EKG no sob, no chest pain L arm states numb not new and concern on cardiac- , asking for therapist, [facility] Medical History (Updated 06/29/23 @ 13:27 by Nathanael Moreno MD) Neck pain History of COVID-19 Osteoarthritis Vitamin D deficiency Hypercholesterolemia Varicose vein of leg Carpal tunnel syndrome on both sides Tubular adenoma of colon Restless leg syndrome Thrombocytopenia Obesity (BMI 30-39.9) Degenerative disc disease, lumbar Anxiety Osteoarthritis of left knee Surgical History History of total right knee replacement H/O repair of rotator cuff History of surgery History of colonoscopy History of stapedectomy H/O breast biopsy History of tonsillectomy Family History Father Dementia Mother Lung cancer Brother Prostate cancer Social History (Updated 10/28/22 @ 11:45 by Nathanael Moreno MD) Housing: House Alcohol intake: current Alcohol intake frequency: a few times a month Patient Tobacco Use Status: Former Tobacco user Quit Date: 2004 Tobacco use type: Cigarette Years Smoked: quit 1999 e-Cigarette/Vaping Use: Never Used Second Hand Smoke Exposure: No Substance Use Type: Marijuana service: No Current occupational status: retired Cognitive needs: No Hearing needs: No Vision needs: Yes Questionnaire Thrive Questionnaire Date Thrive assessed: 06/29/23 I am a: Patient What is your living situation today?: I have a steady place to live Within the past 12 months, did the food you bought not last and you didn't have the money to get more?: Never true Within the past 12 months, did you worry whether your food would run out before you got money to buy more?: Never true Do you have trouble paying for medicines?: No Do you have trouble getting transportation to medical appointments?: No Do you have trouble paying your heating and electricity bill?: No Do you have trouble taking care of your child, family member or friend?: No Do you have trouble with day-to-day activities such as bathing, preparing meals, shopping, managing finances, etc.?: No Are you currently unemployed and looking for a job?: No Are you interested in more education?: No Please select the resources that you would like help with: None Currently or been in a relationship where the following occur: no concerns reported THRIVE Score: 0 AUDIT C Alcohol Use Questionnaire (AUDIT-C) 1. How often do you have a drink containing alcohol?: 2-4 times a month 2. How many drinks containing alcohol do you have on a typical day when you are drinking?: 1 or 2 3. How often do you have six or more drinks on one occasion?: Never Total Score: 2 ISATU-7 AMB Questionnaire ISATU-7 Date ISATU - 7 assessed: 06/29/23 Source: Developed by Drs. Fausto Garcia, Corinna Barnes, Favio Dodd and colleagues, with an educational jeff from [employer]. Physical exam (Primary Care) Vital Signs: Last Vital Signs Pulse 74 06/29/23 12:42 BP 126/64 06/29/23 12:42 Pulse Ox 98 06/29/23 12:42 Oxygen Delivery Method Room Air 06/29/23 12:42 BMI result Body Mass Index 30.7 Tobacco/Smoking Status: Tobacco use Status Tobacco use date assessed 07/01/22 06/29/23 12:46 Patient Tobacco Use Status Former Tobacco user 06/29/23 12:46 Tobacco use type Cigarette 06/29/23 12:46 e-Cigarette/Vaping Use Never Used 06/29/23 12:46 Thrive Assessment: Date of Thrive Assessment Date Thrive assessed 06/29/23 06/29/23 12:46 Currently or been in a relationship where the following occur: no concerns reported Const General: alert; No acute distress Eyes Conjunctivae: conjunctivae normal Resp Auscultation: clear to auscultation bilaterally Cardio Rate: regular rate Rhythm: regular rhythm GI Inspection: Yes normal to inspection Extrem General: Yes normal to inspection and No edema Assessment and Plan Assessment & Plan (1) Blood pressure elevated without history of HTN: Code(s): R03.0 - Elevated blood-pressure reading, without diagnosis of hypertension Plan: Better blood pressure. (2) Obesity (BMI 30.0-34.9): Code(s): E66.9 - Obesity, unspecified Plan: Diet and exercise (3) Hypercholesterolemia: Code(s): E78.00 - Pure hypercholesterolemia, unspecified Plan: Avoid fried foods, chicken skin, eggs, butter margarine, pastries and meat. Be it pork or beef they have a lot of cholesterol LDL goal of less than 130 and triglyceride of less than 150. (4) Impaired glucose tolerance: Code(s): R73.02 - Impaired glucose tolerance (oral) Plan: Decrease the amount of carbohydrate intake, pasta, bread, rice and potatoes are all sugar and that is aside from all the sweet stuff, remember that fruits are good but they are Sweet also. (5) Generalized anxiety disorder: Code(s): F41.1 - Generalized anxiety disorder Plan: Stable (6) RUQ abdominal pain: Code(s): R10.11 - Right upper quadrant pain Orders: Orders US abdomen complete Today R10.11 - Right upper quadrant pain, R79.89 - Other specified abnormal findings of blood chemistry ECG 12 lead EKG Today I49.9 - Cardiac arrhythmia, unspecified Referrals Psychiatry Referral F41.1 - Generalized anxiety disorder Medications: Refilled celecoxib (Celebrex) 200 mg PO DAILY 90 caps 1RF M19.90 - Unspecified osteoarthritis, unspecified site eszopiclone (Lunesta) 3 mg PO BEDTIME 90 days 90 tabs 0RF G47.00 - Insomnia, unspecified dicyclomine 10 mg PO TID 30 caps 0RF Coding Level of Care Code Est Pt Level 4 (29049) Diagnoses Blood pressure elevated without history of HTN R03.0 Obesity (BMI 30.0-34.9) E66.9 Hypercholesterolemia E78.00 Impaired glucose tolerance R73.02 Generalized anxiety disorder F41.1 RUQ abdominal pain R10.11
[2023-06-29 12:42] VITALS: BP 126/64; PULSE 74; O2SAT 98; BMI 30.7
== END 2023-06-29 13:33 | disposition home or self-care (01) ==
PROVIDERS: PCP Internal Medicine; Visit Provider Internal Medicine
DX: R03.0 Elevated blood-pressure reading, without diagnosis of hypertension (principal); E78.00 Pure hypercholesterolemia, unspecified; R73.02 Impaired glucose tolerance (oral); F41.1 Generalized anxiety disorder; R10.11 Right upper quadrant pain
CPT/HCPCS: 99214

== ENCOUNTER → 2023-07-02 10:57 | Outpatient (REF) | payer MEDICARE, SELFPAY ==
--- NOTE | 2023-07-02 11:02 | ECG_ITS ---
Test Reason : I49.9 Blood Pressure : / mmHG Vent. Rate : 067 BPM Atrial Rate : 067 BPM P-R Int : 176 ms QRS Dur : 082 ms QT Int : 408 ms P-R-T Axes : 065 017 030 degrees QTc Int : 431 ms Sinus rhythm with Premature atrial complexes in a pattern of bigeminy Nonspecific ST abnormality Abnormal ECG When compared with ECG of 20-JUN-2020 07:50, Premature atrial complexes are now Present Referred By: Nathanael Moreno Electronically Signed By:FELISA AKBA MD
== END ==
LOC: HO.CARD 10:57
PROVIDERS: PCP Internal Medicine; Visit Provider Internal Medicine
DX: I49.9 Cardiac arrhythmia, unspecified (principal)
CPT/HCPCS: 93005

== ENCOUNTER → 2023-07-02 11:02 | Outpatient (BNV) | payer MEDICARE, SELFPAY | PROVIDERS: PCP Internal Medicine; Visit Provider Internal Medicine Cardiovascular Disease | DX: I49.1 Atrial premature depolarization (principal) | CPT/HCPCS: 93010 ==

== ENCOUNTER 2023-07-09 10:48 | Outpatient (REF) | payer MEDICARE, SELFPAY ==
--- NOTE | ~2023-07-09 | MM_ITS ---
EXAMINATION: MM SCREENING DIGITAL BREAST TOMOSYNTHESIS, BILATERAL CLINICAL INFORMATION: Screening. Asymptomatic. COMPARISON: Mammography: 11/26/2021, 11/13/2020, 12/02/2018, 10/15/2017 TECHNIQUE: Digital breast tomosynthesis is performed in both the craniocaudal and mediolateral oblique views along with computer-aided detection (CAD). Synthesized 2D images are generated from the tomosynthesis. FINDINGS: There are scattered areas of fibroglandular density (ACR BI-RADS breast composition Category b). Parenchymal pattern is somewhat nodular, similar to prior studies without definite change. Post benign biopsy clip again noted in the upper outer right breast. There are no suspicious masses, suspicious grouped calcifications, or areas of architectural distortion in either breast. The parenchymal pattern is stable from prior exams. No skin or axillary abnormalities. MM/MM tomosynthesis screening BI IMPRESSION: No mammographic evidence of malignancy. No significant interval change. ASSESSMENT: BI-RADS BI-RADS 2 - Benign Findings RECOMMENDATION: Routine annual mammography screening. 1 year F/U This examination should not preclude the clinical evaluation of a suspicious palpable abnormality. This patient's information was entered into a reminder system with a target due date for their next mammogram.
--- NOTE | ~2023-07-09 | MM_ITS ---
EXAMINATION: BONE DENSITOMETRY CLINICAL INDICATION: Age-related osteoporosis without current pathological fracture. COMPARISON: Previous BD dated 11/13/2020 and baseline BD dated 05/22/2006. TECHNIQUE: Using a [employer] DXA System (software version: 13.1) manufactured by [employer], dual-energy x-ray absorptiometry was performed of the lumbar spine and left hip. The images are of good technical quality. Summary results are attached. FINDINGS: LEFT FEMUR, NECK: Current: BMD 0.545 g/cm2, Z-score -1.8, T-score -3.5, osteoporosis. Prior: BMD 0.685 g/cm2. Baseline: BMD 0.796 g/cm2. LEFT FEMUR, TOTAL: Current: BMD 0.694 g/cm2, Z-score -1.0, T-score -2.5, osteoporosis, 19.5% decrease from previous, 26.6% decrease from baseline (<5% change is not significant). Prior: BMD 0.862 g/cm2. Baseline: BMD 0.946 g/cm2. AP SPINE L1-L4: Current: BMD 1.138 g/cm2, Z-score 1.2, T-score -0.3, normal, 6.0% increase from previous, 4.4% increase from baseline (<5% change is not significant). Prior: BMD 1.074 g/cm2. Baseline: BMD 1.090 g/cm2. IDENTIFIED RISK FACTORS: Early menopause, osteoporosis, secondary osteoporosis (intestinal or bowel disease). HISTORY OF FRACTURE: None listed. MEDICATIONS: Calcium, vitamin D. MM/XR DEXA axial skeleton IMPRESSION: 1. DIAGNOSIS: Osteoporosis based on the lowest T-score value of -3.5 in the femoral neck applying World Health Organization criteria. 2. 10-YEAR FRACTURE RISK PREDICTION, FRAX: According to the guidelines, FRAX calculation should only be performed on patients in the osteopenia bone density category. Therefore, FRAX was not performed on this patient. 3. Treatment Recommendations: NOF guidelines recommend consideration for treatment in postmenopausal women and men age 50 and older presenting with the following: -A hip or vertebral (clinical or morphometric) fracture. -T-score less than or equal to -2.5 at the femoral neck or spine after appropriate evaluation to exclude secondary causes. -Low bone mass at the hip or spine and a 10-year fracture probability by FRAX of greater than or equal to 3% for hip fracture or greater than or equal to 20% for major osteoporotic fracture based on the [place] adapted WHO algorithm. 4. Other Recommendations: All treatment decisions require clinical judgment and consideration of individual patient factors, including patient preferences, comorbidities, previous drug use, risk factors not captured in the FRAX model (e.g. frailty, falls, vitamin D deficiency, increased bone turnover, interval significant decline in bone density) and possible under or overestimation of fracture risk by FRAX. Additional medical evaluation for secondary cause of low bone mineral density may be appropriate. FUTURE SCAN RECOMMENDATION: People with diagnosed cases of osteoporosis or at high risk for fracture should have regular bone mineral density tests. For patients eligible for Medicare, routine testing is allowed once every 2 years. The testing frequency can be increased to one year for patients who have rapidly progressing disease, those who are receiving or discontinuing medical therapy to restore bone mass, or have additional risk factors.
== END 2023-07-09 10:49 | disposition home or self-care (01) ==
LOC: HO.MAMMO 10:48
PROVIDERS: PCP Internal Medicine; Visit Provider Internal Medicine
DX: M81.0 Age-related osteoporosis without current pathological fracture (principal); Z12.31 Encounter for screening mammogram for malignant neoplasm of breast
CPT/HCPCS: 77063; 77067; 77080

== ENCOUNTER → 2023-07-09 11:30 | Outpatient (BNV) | payer MEDICARE, SELFPAY | PROVIDERS: PCP Internal Medicine; Visit Provider Radiology Diagnostic Radiology | DX: Z12.31 Encounter for screening mammogram for malignant neoplasm of breast (principal) | CPT/HCPCS: 77063; 77067 ==

== ENCOUNTER 2023-07-13 10:14 | Outpatient (REF) | payer MEDICARE, SELFPAY ==
--- NOTE | ~2023-07-13 | US_ITS ---
EXAMINATION: US ABDOMEN COMPLETE CLINICAL INFORMATION: Other specified abnormal findings of blood chemistry. COMPARISON: Abdominal ultrasound 11/06/2016 TECHNIQUE: Real-time imaging of the abdominal viscera. FINDINGS: PANCREAS: Normal head and body, the tail is obscured by bowel gas. ABDOMINAL AORTA: The proximal, mid, and distal segments are normal in caliber. Atherosclerotic calcification is seen. INFERIOR VENA CAVA: Visualized portions are normal. LIVER: The liver is normal in size. The liver contour is normal. There is diffuse increased liver parenchymal echogenicity, consistent with hepatic steatosis. A small amount of focal fatty sparing is seen adjacent to the gallbladder. No focal hepatic lesion. There is no intrahepatic biliary duct dilatation seen. GALLBLADDER: Normal. The gallbladder is physiologically distended without evidence of stones, sludge, polyps, wall thickening or pericholecystic fluid. COMMON BILE DUCT: Normal in caliber measuring 0.7 cm in diameter. This is normal for the patient's age. RIGHT KIDNEY: There is interval increased ill-defined echogenicity in the lower pole of the right kidney measuring approximately 1.8 x 1.4 cm. No hydronephrosis. No renal calculi or focal parenchymal lesions. The kidney measures 10.7 cm in maximum dimension. LEFT KIDNEY: 1.3 x 0.8 x 1.2 cm simple exophytic cyst is seen in the mid kidney, no imaging follow-up recommended. 0.9 x 0.7 x 0.8 cm echogenic focus in the upper pole previously measured 0.8 x 0.6 x 0.9 cm on abdominal ultrasound of 11/06/2016. This is consistent with an angiomyolipoma. No hydronephrosis or renal calculi. The kidney measures 10.9 cm in maximum dimension. SPLEEN: Normal. The spleen measures 9.4 cm in maximum dimension. FREE FLUID: None. US/US abdomen complete IMPRESSION: 1. Hepatic steatosis. 2. Interval increased ill-defined echogenicity in the lower pole of the right kidney. CT scan is recommended for further evaluation. 3. 0.9 cm echogenic focus in the upper pole of the left kidney is consistent with an angiomyolipoma.
== END 2023-07-13 10:15 | disposition home or self-care (01) ==
LOC: HO.US 10:14
PROVIDERS: PCP Internal Medicine; Visit Provider Internal Medicine
DX: R10.11 Right upper quadrant pain (principal); R79.89 Other specified abnormal findings of blood chemistry
CPT/HCPCS: 76700

== ENCOUNTER 2023-08-28 14:03 | Outpatient (AMB) | payer MEDICARE, SELFPAY ==
[2023-08-28 14:04] VITALS: BP 152/60; PULSE 92; O2SAT 97; BMI 30.9
--- NOTE | 2023-08-28 14:04 | MHC.PC.OV ---
Vital Signs 08/28/23 14:04 08/28/23 14:26 Height 5 ft Weight 158 lb BMI 30.9 BP 152/60 H 140/60 H Blood Pressure Location Lt brachial Lt brachial Position Sitting Sitting Pulse 92 Pulse Source Pulse Oximeter Pulse Oximetry (%) 97 Oxygen Delivery Method Room Air Intake Visit Reasons: headaches Circular Tank Cooper Required: No Allergies amoxicillin [AMOXICILLIN] Allergy (Severe, Verified 08/28/23 14:05) ITCHINESS, hives, itching, scratchy throat feathers Allergy (Severe, Verified 08/28/23 14:05) ITCHINESS hydromorphone [HYDROMORPHONE] Allergy (Severe, Verified 08/28/23 14:05) REDNESS,itching,hives penicillin V Allergy (Severe, Verified 08/28/23 14:05) Itching,hives shellfish derived Allergy (Severe, Verified 08/28/23 14:05) Hives, itching Sulfa (Sulfonamide Antibiotics) [SULFA (SULFONAMIDE ANTIBIOTICS)] Allergy (Severe, Verified 08/28/23 14:05) ITCHINESS,hives latex [LATEX] Allergy (Intermediate, Verified 08/28/23 14:05) SWELLING/HIVES levofloxacin [From LEVAQUIN] Adverse Reaction (Severe, Verified 08/28/23 14:05) HALLUCINATIONS montelukast [From Singulair] Adverse Reaction (Intermediate, Verified 08/28/23 14:05) RLS clams Allergy (Severe, Uncoded 08/28/23 14:05) Anaphylaxis shell fish Allergy (Mild, Uncoded 08/28/23 14:05) Anaphylaxis NO MRI due to metal in the ear Allergy (Unknown, Uncoded 08/28/23 14:05) Unknown Medication List - Last Reconciled 08/28/23 by Nathanael Moreno MD albuterol sulfate 90 mcg/actuation (ProAir HFA) 2 puffs inhalation Q6H PRN alprazolam 0.25 mg PO DAILY calcium carbonate (Tums) 200 mg PO BID calcium [id number] no.[id number] 260 mg calcium- 25 mcg-50 mg (Alive Calcium-Vitamin D3) 1 tab PO .QD celecoxib (Celebrex) 200 mg PO DAILY cetirizine (Zyrtec) 10 mg PO DAILY clotrimazole-betamethasone 1-0.05 % 1 appl topical BID 2 weeks dicyclomine 10 mg PO TID eszopiclone (Lunesta) 3 mg PO BEDTIME 90 days omeprazole 20 mg PO .QOD Tobacco use date assessed: 08/28/23 Fall risk assessment: No Falls in past year Last assessed Fall Risk: 08/28/23 Dental Screening Dental Screen Date: 08/28/23 HPI headaches HPI Details 72-year-old obese female with hypercholesterolemia impaired glucose tolerance generalized anxiety disorder last seen in 06/29/2023 having an elevated blood pressure. Patient is here for an acute problem. Noted an ER visit August 18 2023 for epigastric and right upper quadrant pain workup was negative. Ultrasound done 07/27/2023Hepatic steatosis. 2. Interval increased ill-defined echogenicity in the lower pole of the right kidney. CT scan is recommended for further evaluation. 3. 0.9 cm echogenic focus in the upper pole of the left kidney is consistent with an angiomyolipoma. Review of the notes had mammogram done also Jul 09 2023 in the bone density done showing osteoporosis 20% decrease from the previous left femur 6% increase from the previous spine. complains of M[place]YA posterior [place]. noted elevated BP also was rx prednsone also. [facility] Medical History (Updated 08/28/23 @ 14:38 by Nathanael Moreno MD) Neck pain History of COVID-19 Osteoarthritis Vitamin D deficiency Hypercholesterolemia Varicose vein of leg Carpal tunnel syndrome on both sides Tubular adenoma of colon Restless leg syndrome Thrombocytopenia Obesity (BMI 30-39.9) Degenerative disc disease, lumbar Anxiety Osteoarthritis of left knee Surgical History History of total right knee replacement H/O repair of rotator cuff History of surgery History of colonoscopy History of stapedectomy H/O breast biopsy History of tonsillectomy Family History Father Dementia Mother Lung cancer Brother Prostate cancer Social History (Updated 10/28/22 @ 11:45 by Nathanael Moreno MD) Housing: House Alcohol intake: current Alcohol intake frequency: a few times a month Patient Tobacco Use Status: Former Tobacco user Tobacco use type: Cigarette Years Smoked: quit 1999 e-Cigarette/Vaping Use: Never Used Second Hand Smoke Exposure: No Substance Use Type: Marijuana service: No Current occupational status: retired Cognitive needs: No Hearing needs: No Vision needs: Yes Questionnaire Thrive Questionnaire Date Thrive assessed: 06/29/23 AUDIT C Alcohol Use Questionnaire (AUDIT-C) 1. How often do you have a drink containing alcohol?: 2-4 times a month 2. How many drinks containing alcohol do you have on a typical day when you are drinking?: 1 or 2 3. How often do you have six or more drinks on one occasion?: Never Total Score: 2 ISATU-7 AMB Questionnaire ISATU-7 Date ISATU - 7 assessed: 06/29/23 Source: Developed by Drs. Fausto Garcia, Corinna Barnes, Favio Dodd and colleagues, with an educational jeff from [employer] Physical exam (Primary Care) Vital Signs: Last Vital Signs Pulse 92 08/28/23 14:04 BP 152/60 H 08/28/23 14:04 Pulse Ox 97 08/28/23 14:04 Oxygen Delivery Method Room Air 08/28/23 14:04 BMI result Body Mass Index 30.9 Tobacco/Smoking Status: Tobacco use Status Tobacco use date assessed 08/28/23 08/28/23 14:06 Patient Tobacco Use Status Former Tobacco user 08/28/23 14:06 Tobacco use type Cigarette 08/28/23 14:06 e-Cigarette/Vaping Use Never Used 08/28/23 14:06 Thrive Assessment: Date of Thrive Assessment Date Thrive assessed 06/29/23 08/28/23 14:06 Const General: alert; No acute distress Eyes Conjunctivae: conjunctivae normal Resp Auscultation: clear to auscultation bilaterally Cardio Rate: regular rate Rhythm: regular rhythm GI Inspection: Yes normal to inspection Neuro Other: Neurological exam is normal Extrem General: Yes normal to inspection and No edema Assessment and Plan Assessment & Plan (1) Hepatic steatosis: Comment: July 2023 Code(s): K76.0 - Fatty (change of) liver, not elsewhere classified Plan: Low-fat diet and exercise (2) Kidney lesion, [place], right: Comment: 07/2023 Code(s): N28.9 - Disorder of kidney and ureter, unspecified Plan: Ultrasound done revealing a right kidney lesion and a CT scan was requested. (3) Osteoporosis: Comment: November Code(s): M81.0 - Age-related osteoporosis without current pathological fracture Plan: Discussed about calcium and vitamin-D as well as medications to help increase bone mass (4) Hypercholesterolemia: Code(s): E78.00 - Pure hypercholesterolemia, unspecified Plan: Avoid fried foods, chicken skin, eggs, butter margarine, pastries and meat. Be it pork or beef they have a lot of cholesterol LDL goal of less than 130 and triglyceride of less than 150 (5) Anxiety: Comment: With medication Code(s): F41.9 - Anxiety disorder, unspecified Plan: patient has a counsellor right now. Patient is prescribed a benzodiazepine to take as needed for severe anxiety. Side effects discussed (6) Blood pressure elevated without history of HTN: Code(s): R03.0 - Elevated blood-pressure reading, without diagnosis of hypertension Plan: Discussed that the blood pressure is brought about by anxiety and will continue to monitor for the moment. (7) Tension headache: Code(s): G44.209 - Tension-type headache, unspecified, not intractable Plan: Discussed that the description patient has given is more tension headache. And patient is in a lot of stress right now. Medications: New alprazolam 0.25 mg PO DAILY 7 tabs 0RF F41.1 - Generalized anxiety disorder Coding Level of Care Code Est Pt Level 4 (30013) Diagnoses Hepatic steatosis K76.0 Kidney lesion, [place], right N28.9 Osteoporosis M81.0 Hypercholesterolemia E78.00 Anxiety F41.9 Blood pressure elevated without history of HTN R03.0 Tension headache G44.209
[2023-08-28 14:26] VITALS: BP 140/60
== END 2023-08-28 14:37 | disposition home or self-care (01) ==
PROVIDERS: PCP Internal Medicine; Visit Provider Internal Medicine
DX: K76.0 Fatty (change of) liver, not elsewhere classified (principal); N28.9 Disorder of kidney and ureter, unspecified; M81.0 Age-related osteoporosis without current pathological fracture; E78.00 Pure hypercholesterolemia, unspecified; F41.9 Anxiety disorder, unspecified; R03.0 Elevated blood-pressure reading, without diagnosis of hypertension; G44.209 Tension-type headache, unspecified, not intractable
CPT/HCPCS: 99214

== ENCOUNTER 2023-10-01 10:34 | Outpatient (REF) | payer MEDICARE, SELFPAY ==
--- NOTE | ~2023-10-01 | CT_ITS ---
EXAMINATION: CT ABDOMEN AND PELVIS WITHOUT CONTRAST CLINICAL INFORMATION: Disorder of kidney and ureter, unspecified. COMPARISON: Abdominal ultrasound dated 07/13/2023. TECHNIQUE: Multidetector volumetric imaging was performed from the superior aspect of the liver through the pubic symphysis. Sagittal and coronal reformatted images were obtained on the technologist's workstation. This CT examination was performed using dose optimization techniques as appropriate, variously including the following: *Automated exposure control *Adjustment of mA and/or kV according to patient size (this includes techniques or standardized protocols for targeted exams where dose is matched to indication/reason for exam; i.e. extremities or head) *Use of iterative reconstruction technique DLP: 363 mGy-cm FINDINGS: LUNG BASES: The visualized lung bases are unremarkable. LIVER, GALLBLADDER, AND BILIARY TREE: The liver is normal in size, shape and generally diminished in attenuation. No focal hepatic lesion or biliary ductal dilatation is present. The gallbladder is unremarkable with no evidence of radiopaque gallstones, gallbladder wall thickening, or obvious pericholecystic inflammatory changes. PANCREAS: Unremarkable. SPLEEN: Unremarkable. ADRENAL GLANDS: Unremarkable. KIDNEYS AND URETERS: The kidneys are normal in size, shape, and attenuation. A previously characterized 1.2 cm exophytic cyst is redemonstrated arising from the lateral margin of the left kidney (3:26). This requires no imaging follow-up. No hydronephrosis, hydroureter, or calculi seen. No perinephric stranding. BLADDER: Unremarkable. GASTROINTESTINAL TRACT: There is moderate diverticulosis, without acute diverticulitis. No obstruction, free intraperitoneal air or abscess is seen. There is no focal bowel wall thickening. The vermiform appendix is normal. ABDOMINAL WALL: There is a tiny fat containing umbilical hernia. LYMPH NODES: Normal. VASCULAR: There is moderate aortoiliac atherosclerotic calcification. No abdominal aortic aneurysm is seen. PELVIC VISCERA: The uterus and adnexa are unremarkable. OSSEOUS STRUCTURES: There is marked degenerative disc disease at L4-5 and L5-S1. There is a rudimentary disc space at L5-S1, with transitional appearance. No acute or aggressive osseous finding is seen. CT/CT abdomen pelvis wo IV con IMPRESSION: 1. No urinary mass, calculus or obstruction is seen. 2. There is hepatic steatosis. 3. There is moderate diverticulosis, without acute diverticulitis. 4. There are degenerative changes of the lumbosacral spine. Fleischner guidelines were followed. Electronically signed by: Amrit Webb MD 10/28/2023 10:19 AM EDT RP
[2023-10-01 11:40] LABS: Blood Urea Nitrogen 15 mg/dL (9-16); Estimated Glomerular Filt Rate > 60
[2023-10-01 11:56] LABS: Vitamin D 25-OH Total 44.3 ng/mL (>30)
== END 2023-10-01 10:35 | disposition home or self-care (01) ==
LOC: HO.CT 10:34
PROVIDERS: PCP Internal Medicine; Visit Provider Internal Medicine
DX: N28.9 Disorder of kidney and ureter, unspecified (principal); E78.00 Pure hypercholesterolemia, unspecified
CPT/HCPCS: 36415; 74176; 82306; 82565; 84520

== ENCOUNTER 2023-11-16 16:36 | Outpatient (AMB) | payer MEDICARE, SELFPAY ==
--- NOTE | 2023-11-16 16:46 | MHC.PC.OV ---
Vital Signs 11/16/23 16:47 Height 5 ft Weight 160 lb BMI 31.2 BP 120/66 Blood Pressure Location Lt brachial Position Sitting Pulse 82 Pulse Source Pulse Oximeter Pulse Oximetry (%) 98 Oxygen Delivery Method Room Air Intake Visit Reasons: 3 Month F/U Intake Note: Patient is here to follow up on Insomnia, IGT, Hypercholesterolemia. Pt decline flu shot today Lead Burner Apprentice Required: No Ict Business Development Manager: Not Required per policy Accompanied by: Self / Same As Patient Allergies amoxicillin [AMOXICILLIN] Allergy (Severe, Verified 11/16/23 16:47) ITCHINESS, hives, itching, scratchy throat feathers Allergy (Severe, Verified 11/16/23 16:47) ITCHINESS hydromorphone [HYDROMORPHONE] Allergy (Severe, Verified 11/16/23 16:47) REDNESS,itching,hives penicillin V Allergy (Severe, Verified 11/16/23 16:47) Itching,hives shellfish derived Allergy (Severe, Verified 11/16/23 16:47) Hives, itching Sulfa (Sulfonamide Antibiotics) [SULFA (SULFONAMIDE ANTIBIOTICS)] Allergy (Severe, Verified 11/16/23 16:47) ITCHINESS,hives latex [LATEX] Allergy (Intermediate, Verified 11/16/23 16:47) SWELLING/HIVES levofloxacin [From LEVAQUIN] Adverse Reaction (Severe, Verified 11/16/23 16:47) HALLUCINATIONS montelukast [From Singulair] Adverse Reaction (Intermediate, Verified 11/16/23 16:47) RLS clams Allergy (Severe, Uncoded 11/16/23 16:47) Anaphylaxis shell fish Allergy (Mild, Uncoded 11/16/23 16:47) Anaphylaxis NO MRI due to metal in the ear Allergy (Unknown, Uncoded 11/16/23 16:47) Unknown Tobacco use date assessed: 11/16/23 Fall risk assessment: No Falls in past year Last assessed Fall Risk: 11/16/23 Dental Screening Dental Screen Date: 08/28/23 HPI 3 Month F/U HPI Details 73-year-old obese female with hepatic steatosis, right kidney lesion that required CT scan osteoporosis hypercholesterolemia generalized anxiety disorder noted to have an elevated blood pressure at that time was seen in 08/29/2023. Patient's colonoscopy is up-to-date 2020 mammogram is up-to-date bone density is up-to-date. CT scan done in 10/28/2023No urinary mass, calculus or obstruction is seen. 2. There is hepatic steatosis. 3. There is moderate diverticulosis, without acute diverticulitis. 4. There are degenerative changes of the lumbosacral spin stressed right now due to brother sick with thyroid cancer and son in law alcoholic, very anxious. concern about thyoid . complains ofn dyphagia and took prilosec. and occ pepcid. decline US thyroid [facility] Medical History (Updated 11/16/23 @ 17:22 by Nathanael Moreno MD) Neck pain History of COVID-19 Osteoarthritis Vitamin D deficiency Hypercholesterolemia Varicose vein of leg Carpal tunnel syndrome on both sides Tubular adenoma of colon Restless leg syndrome Thrombocytopenia Obesity (BMI 30-39.9) Degenerative disc disease, lumbar Anxiety Osteoarthritis of left knee Surgical History History of total right knee replacement H/O repair of rotator cuff History of surgery History of colonoscopy History of stapedectomy H/O breast biopsy History of tonsillectomy Family History Father Dementia Mother Lung cancer Brother Prostate cancer Social History Housing: House Alcohol intake: current Alcohol intake frequency: a few times a month Patient Tobacco Use Status: Former Tobacco user Tobacco use type: Cigarette Years Smoked: quit 1999 e-Cigarette/Vaping Use: Never Used Second Hand Smoke Exposure: Yes Substance Use Type: Marijuana service: No Current occupational status: retired Cognitive needs: No Hearing needs: No Vision needs: Yes Questionnaire PHQ-9 Over the last 2 weeks, how often have you been bothered by any of the following problems? 1. Little interest or pleasure in doing things: not at all 2. Feeling down, depressed, or hopeless: not at all 3. Trouble falling or staying asleep, or sleeping too much: not at all 4. Feeling tired or having little energy: not at all 5. Poor appetite or overeating: not at all 6. Feeling bad about yourself - or that you are a failure or have let yourself or your family down: not at all 7. Trouble concentrating on things, such as reading the newspaper or watching television: not at all 8. Moving or speaking so slowly that other people could have noticed. Or the opposite - being so fidgety or restless that you have been moving around a lot more than usual: not at all 9. Thoughts that you would be better off or of hurting yourself in some way: not at all Total score: 0 Depression Screening Interpretation: Negative Depression Screening Done: Yes Source: Developed by Drs. Fausto Garcia, Corinna Barnes, Favio Dodd and colleagues, with an educational jeff from [employer]. Thrive Questionnaire Date Thrive assessed: 06/29/23 Are you currently unemployed and looking for a job?: I choose not to answer this question ISATU-7 AMB Questionnaire ISATU-7 Date ISATU - 7 assessed: 06/29/23 Source: Developed by Drs. Fausto Garcia, Corinna Barnes, Favio Dodd and colleagues, with an educational jeff from [employer]. Physical exam (Primary Care) Vital Signs: Last Vital Signs Pulse 82 11/16/23 16:47 BP 120/66 11/16/23 16:47 Pulse Ox 98 11/16/23 16:47 Oxygen Delivery Method Room Air 11/16/23 16:47 BMI result Body Mass Index 31.2 Tobacco/Smoking Status: Tobacco use Status Tobacco use date assessed 11/16/23 11/16/23 16:53 Patient Tobacco Use Status Former Tobacco user 11/16/23 16:53 Tobacco use type Cigarette 11/16/23 16:53 e-Cigarette/Vaping Use Never Used 11/16/23 16:53 PHQ-9: PHQ-9 Score PHQ-9: Total score 0 11/16/23 16:53 Depression Screening Interpretation: Negative Thrive Assessment: Date of Thrive Assessment Date Thrive assessed 06/29/23 11/16/23 16:53 Const General: alert; No acute distress Eyes Conjunctivae: conjunctivae normal Resp Auscultation: clear to auscultation bilaterally Cardio Rate: regular rate Rhythm: regular rhythm GI Inspection: Yes normal to inspection Extrem General: Yes normal to inspection and No edema Coding Level of Care Code Est Pt Level 4 (62785) Diagnoses Hepatic steatosis K76.0 Kidney lesion, [place], right N28.9 Blood pressure elevated without history of HTN R03.0 Obesity (BMI 30.0-34.9) E66.9 Impaired glucose tolerance R73.02 Hypercholesterolemia E78.00 Assessment & Plan Assessment & Plan (1) Hepatic steatosis: Comment: July 2023 Code(s): K76.0 - Fatty (change of) liver, not elsewhere classified Category: Medical Plan: Low-fat diet and exercise (2) Kidney lesion, [place], right: Comment: 07/2023 CT scan October 2023- Code(s): N28.9 - Disorder of kidney and ureter, unspecified Category: Medical Plan: CT scan done negative results (3) Blood pressure elevated without history of HTN: Code(s): R03.0 - Elevated blood-pressure reading, without diagnosis of hypertension Category: Medical Plan: Blood pressure is good (4) Obesity (BMI 30.0-34.9): Code(s): E66.9 - Obesity, unspecified Category: Medical Plan: Diet and exercise (5) Impaired glucose tolerance: Code(s): R73.02 - Impaired glucose tolerance (oral) Category: Medical Plan: Decrease the amount of carbohydrate intake, pasta, bread, rice and potatoes are all sugar and that is aside from all the sweet stuff, remember that fruits are good but they are Sweet also. (6) Hypercholesterolemia: Code(s): E78.00 - Pure hypercholesterolemia, unspecified Category: Medical Plan: low cholesterol diet and repeat test is good
[2023-11-16 16:47] VITALS: BP 120/66; PULSE 82; O2SAT 98; BMI 31.2
== END 2023-11-16 17:42 | disposition home or self-care (01) ==
PROVIDERS: PCP Internal Medicine; Visit Provider Internal Medicine
DX: K76.0 Fatty (change of) liver, not elsewhere classified (principal); N28.9 Disorder of kidney and ureter, unspecified; E66.811 Obesity, class 1; Z68.31 Body mass index [BMI] 31.0-31.9, adult; R03.0 Elevated blood-pressure reading, without diagnosis of hypertension; R73.02 Impaired glucose tolerance (oral); E78.00 Pure hypercholesterolemia, unspecified

== ENCOUNTER → 2023-11-16 16:36 | Outpatient (BNVA) | payer MEDICARE, SELFPAY | PROVIDERS: PCP Internal Medicine; Visit Provider Internal Medicine | DX: K76.0 Fatty (change of) liver, not elsewhere classified (principal); N28.9 Disorder of kidney and ureter, unspecified; R03.0 Elevated blood-pressure reading, without diagnosis of hypertension; E66.9 Obesity, unspecified; R73.02 Impaired glucose tolerance (oral); E78.00 Pure hypercholesterolemia, unspecified | CPT/HCPCS: 99212 ==

== ENCOUNTER 2024-07-01 08:51 | Outpatient (REF) | payer MEDICARE, SELFPAY ==
--- OUTSIDE RECORDS SUMMARY | 2024-07-01 09:12 | XMS_ITS | Data Portability ---
Author Organization [place] - [facility], Allergy Address [address] [place] [phone] Care Team Providers Care Battalion Fire Chief Name Role Phone JAMILAH SOFIA Primary Care Provider Assessment Encounter Date Assessment Date Assessment LastModified by Organization Details LastModified Time 10/05/2023 10/05/2023 Audiometric testing was completed today and reviewed with the patient. 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 She still has well-maintained speech discrimination. Overall unchanged in comparison to last audiogram in 2017. Today we discussed that her best option for remedying her hearing loss is certainly a new hearing aid for the left ear. We discussed the pros and cons of getting a hearing aid for the right ear. She is medically cleared for amplification bilaterally. I recommended she contact her repairer recreational vehicle at [facility] to discuss this in more detail. Once again I recommended against consideration of further revision surgery in her left ear. [email or web address] Not available 10/05/2023 16:36:27 Plan of Treatment Reminders Order Date Submit Date Provider Last Modified By Organization Details Last Modified Time Details Appointments None record ed. Lab None record ed. Referral None record ed. Procedures None record ed. Surgeries None record ed. Imaging None record ed. Medication Orders None record ed. Patient TargetsNo targets recorded. Patient InstructionsNo instructions recorded. Reason for Referral None Reported. Results Created Date Observation Date Name Description Value Unit Range Abnormal Flag Note LastModifiedBy Organization Detail LastModifiedTime 10/05/19 24 audio gram No observ ation record ed. [email or web address] Not Available 04/2023 14:46:09 Result Notes None recorded. 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 29149403 Active 2016 Otosclero sis involving oval window, nonoblite rative, bilateral ; Note: Date Diagnosed : 10/27/2016 1:16 PM (H80.03) Not Available [facility] 4 02:29:06 Mixed conductiv e and sensorine ural hearing loss of left ear 87700961668 107 Active 2016 Mixed conductiv e and sensorine ural hearing loss, unilatera l, left ear with restricte d hearing on the contralat eral side; Note: Date Diagnosed : 10/27/2016 11:22 AM (H90.A32) Not Available [facility] 4 02:29:00 Sensorine ural hearing loss in right ear 78055939844 100 Active 2016 Sensorine ural hearing loss, unilatera l, right ear, with restricte d hearing on the contralat eral side; Note: Date Diagnosed : 10/27/2016 11:22 AM (H90.A21) Not Available [facility] 4 02:29:04 Bilateral otosclero sis of ossicle of ears 13884158564 79565 Active 2023 JOSE ALANIS MD [address] [place] [address], [phone] , [facility] 4 16:49:34 Problem Notes None recorded. Procedures Surgical History Date Name Laterality Status Provider Name and Address Organization Details Recorded Time 10/05/2023 Comp Audio with Tymps - 76182 & 04968 completed RICK MENDEZ [address] [place] [address], [phone], [facility] 10/05/2023 15:01:17 Imaging Results Imaging Date Name Status LastModified by Organiz ation Details LastModified Time 10/05/2023 audiogram completed [email or web address] Information not available 10/13/2023 14:46:09 Procedure Notes None recorded. Medical Equipment None Reported. Allergies Allergen ID Allergen Name Allergen Category Reaction Reaction Severity Criticality Documentation Date Start Date Code Code System Note Provider Name and Address Organization Details Recorded Time 942482 amoxicill in medicatio n Not available Not available Not available 10/05/2023 723 RxNorm Adrien beth [place] - [facility] 4 15:45:41 73793 levofloxa lyubov medicatio n other Not available Not available 06/23/2023 06279 RxNorm React ion: unkno wn, unspe cifie d;; Not Available [facility] 4 00:58:56 83132 morphine medicatio n other Not available Not available 06/23/2023 7052 RxNorm React ion: unkno wn, unspe cifie d;; Not Available [facility] 4 00:58:57 48389 Product containin g penicilli n (product) medicatio n other Not available Not available 06/23/2023 92246 8001 SNOMED React ion: unkno wn, unspe cifie d;; Not Available [facility] 4 00:59:04 Medications Name Sig Start Date Stop Date Status Note LastModified by Organization Details LastModified Time celecoxib 200 mg capsule TAKE 1 CAPSULE BY MOUTH DAILY 10/04 completed Not Available Not Available Not Available fluconazo le 100 mg tablet TAKE 1 TABLET BY MOUTH EVERY DAY X 5 DAYS 10/04 completed Not Available Not Available Not Available nystatin 100,000 unit/mL oral suspensio n PLACE 5 ML BY MOUTH OR THROAT FOUR TIMES DAILY FOR 14 DAYS 10/04 completed Not Available Not Available Not Available azithromy lyubov 250 mg tablet TAKE 2 TABLETS BY MOUTH FOR 1 DAY THEN TAKE 1 TABLET BY MOUTH EVERY DAY FOR 4 DAYS 10/04 completed Not Available Not Available Not Available fluconazo le 150 mg tablet TAKE 1 TABLET BY MOUTH DAILY FOR 1 DAY 10/04 completed Not Available Not Available Not Available Nystop 100,000 unit/gram topical powder APPLY TO BODY FOLDS DAILY NEEDED 10/04 completed Not Available Not Available Not Available fluconazo le 200 mg tablet TAKE 1 TABLET BY MOUTH EVERY DAY 10/04 completed Not Available Not Available Not Available alprazola m 0.25 mg tablet TAKE 1 TABLET BY MOUTH DAILY 10/04 completed Not Available Not Available Not Available clotrimaz ole-betam ethasone 1 %-0.05 % topical cream APPLY TO THE AFFECTED AREA NEEDED FOR FLARES 10/04 completed Not Available Not Available Not Available omeprazol e 20 mg capsule,d elayed release 10/04 completed Medicati on ID: [id number] D uration Value: 30 Brand Name: omeprazo le Send Method: E-Prescr ibed Sub s Allowed: subs OK Speci al Instruct ion: take 1 capsule by mouth once daily Me dication GenericN mary lou: omeprazo le Not Available Not Available Not Available lorazepam 1 mg tablet 10/04 completed Medicati on ID: [id number] D uration Value: 22 Brand Name: lorazepa m Send Method: E-Prescr ibed Sub s Allowed: subs OK Speci al Instruct ion: take 1 tablet by mouth twice a day if needed M edicatio nGeneric Name: lorazepa m Not Available Not Available Not Available methylpre dnisolone 4 mg tablets in a dose pack FOLLOW PACKAGE DIRECTIO NS 10/04 completed Not Available Not Available Not Available dicyclomi ne 10 mg capsule TAKE 1 CAPSULE BY MOUTH THREE TIMES DAILY 10/04 completed Not Available Not Available Not Available Lunesta 3 mg tablet Take 1 tablet every day by oral route. active Not Available Not Available No t Available magnesium active Not Available Not Emma ilable Not Available Zyrtec 10 mg capsule Take 1 capsule by mouth once a day active Medicati on ID: [id number] D uration Value: 30 Brand Name: Zyrtec S end Method: E-Prescr ibed Sub s Allowed: subs OK Medic ationGen ericName : Zyrtec Not Available Not Available Not Available Tylenol 325 mg capsule Take by oral route. active Not Available Not Available No t Available Vitals Date Recorded Body height Body mass index (BMI) Body weight Provider Name and Address Organization Details Last Updated DateTime 10/05/2023 152.4 cm 30.9 kg/m2 38220.59 g Adrien Kim [place] - [facility] 10/05/2023 15:51:24 Social History None recorded. Functional Status None recorded. Mental Status None recorded. Family History Nothing Reported. Medical History No medical history recorded. Gynecological HistoryNo gynecological history recorded. Obstetrics History GPAL:G 0 P 0 0 0 0 Past Encounters Encounter ID Performer Location Encounter Start Date Encounter Closed Date Diagnosis/Indication Diagnosis SNOMED-CT Code Diagnosis ICD10 Code Diagnosis Note [id number] JOSE ALANIS MD [facility] on [address] 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 Left ear: {{Normal N ormal through 2 kHz Mild* Moderate M oderately- severe Sev ere Profou nd}} {{hearing sloping to a mild slopi ng to a moderate s loping to moderately severe slo ping to severe slo ping to profound* flat high frequency low frequency mid frequency cookie bite garber curve}} {{with sen sorineural hearing loss with condu ctive hearing loss with mixed hearing loss with*}} {{excellen t* good fa ir poor no measurable }} word recognitio n. Tympanomet ry: Right Ear:{{Type A* Type As Type Ad Type C Type C, shallow & rounded Ty pe B Type B with large volume Cou ld not maintain a hermetic seal}} Left Ear:{{Type A Type As Type Ad Type C* Type C, shallow & rounded Ty pe B Type B with large volume Cou ld not maintain a hermetic seal}} Sensorineu ral hearing loss in right ear [id number] 9100 H90.A21 Health Concerns Section Related Observation LastModified by Organization Detai ls LastModified Time None Recorded Concern Status LastModified by Organization Details LastModified Time None Recorded Advance Directives Directive None Recorded Payers Insurance Date Sequence Insurance Name Policy Number Policy Maldonado Covered Member ID Maldonado Member ID Guarantor Name 10/05/2023 1 [facility]: MEDICARE PPO BLUE (MEDICARE REPLACEMENT PPO) [id number] Janis Mayorga [id number] Janis Mayorga Notes Date Note Type Note Provider Name and Address Organization Details Recorded Time 10/05/2023 text/html 73 year old fema le last [place] [address] Elkins. History of stapes surgeries bilaterally; the right was done by Dr. Mosquera and the left was done by me in 2003. Patient had left sided revision in 2008 with me due to dislocation of the prosthesis following airplane travel. Patient last seen back in 2016 at which point she had sensorineural hearing loss in the right ear and mixed hearing loss in the left ear. I did not recommend further revision surgery on the left ear. Amplification recommended which she obtain through [facility] back in 2017. She has had the device repaired periodically over the years but is not sure whether it is working as well as it should. She comes in today for audiometric testing and discussion regarding amplification options. JOSE ALANIS MD [address] [place] [address], [place], [address], [place] - [facility] 10/05/2023 16:38:11 OBGyn Episode No OBEpisode recorded.
[2024-07-01 11:19] LABS: MANUAL DIFF FLAG NO
[2024-07-01 11:36] LABS: Basophils Absolute Auto 0.1 X10*3/uL (0.0-0.2); Basophils Percent Auto 1.1 % (0-2); Eosinophils Absolute Auto 0.3 X10*3/uL (0.0-0.4); Eosinophils Percent Auto 3.9 % (0-4); Hematocrit 43.4 % (37.0-47.0); Hemoglobin 14.6 g/dl (12.0-16.0); Imm Gran Abs Auto 0.02 X10*3/uL (0.00-0.03); Imm Gran Pct Auto 0.3 % (0.0-0.4); Lymphocytes Absolute Auto 1.9 X10*3/uL (1.2-4.9); Lymphocytes Percent Auto 29.3 % (20-40); Mean Corpuscular HGB Conc 33.6 g/dl (31.0-35.0); Mean Corpuscular Hemoglobin 31.3 pg (27.0-33.0); Mean Corpuscular Volume 93.1 fL (80.0-98.0); Mean Platelet Volume 12.3 fL (9.4-12.3); Monocytes Absolute Auto 0.6 X10*3/uL (0.1-1.2); Monocytes Percent Auto 8.5 % (2-11); Neutrophils Absolute Auto 3.7 x10*3/uL (2.0-8.3); Neutrophils Percent Auto 56.9 % (45-73); Platelet Count 161 X10*3/uL (160-400); Red Blood Count 4.66 X10*6/uL (4.20-5.50); Red Cell Distribution Width 13.2 % (11.0-16.0); White Blood Count 6.5 X10*3/uL (4.8-10.8)
[2024-07-01 11:47] LABS: Estimated Average Glucose 103 mg/dL; Hemoglobin A1c % 5.2 % (<6.0); Total Hemoglobin (HGBA1C) 3747.7018 umol/L
[2024-07-01 12:01] LABS: Alanine Aminotransferase 29 U/L (0-31); Albumin Level 4.2 g/dL (3.5-5.0); Alkaline Phosphatase 45 U/L (39-117); Anion Gap 9 (12-20); Aspartate Amino Transferase 25 U/L (5-31); Bilirubin Total 0.8 mg/dL (0.0-1.0); Blood Urea Nitrogen 22 mg/dL (9-16); Calcium 9.6 mg/dL (8.4-10.2); Carbon Dioxide 28 mmol/L (22-29); Chloride 111 mmol/L (96-108); Cholesterol 198 mg/dL (<200); Estimated Glomerular Filt Rate > 60; Glucose Random 92 mg/dL (60-115); HDL Cholesterol 46 mg/dL (>40); LDL Cholesterol Calculated 132 mg/dL (<100); Potassium 3.9 mmol/L (3.3-5.1); Sodium 144 mmol/L (135-145); Total Protein 6.5 g/dL (6.5-8.0); Triglycerides 100 mg/dL (<150)
[2024-07-01 12:19] LABS: Free T4 (Free Thyroxine) 0.98 ng/dL (0.71-1.85); Thyroid Stimulating Hormone 1.51 uIU/mL (0.32-4.0); Vitamin D 25-OH Total 66.5 ng/mL (>30)
[2024-07-01 12:27] LABS: Folate 8.2 ng/mL (> or = 4.0); Vitamin B12 768 pg/mL (200-900)
== END 2024-07-01 08:52 | disposition home or self-care (01) ==
LOC: HO.WFDLDS 08:51
PROVIDERS: Visit Provider Internal Medicine
DX: K76.0 Fatty (change of) liver, not elsewhere classified (principal); E78.00 Pure hypercholesterolemia, unspecified; Z13.1 Encounter for screening for diabetes mellitus
CPT/HCPCS: 36415; 80053; 80061; 82306; 82607; 82746; 83036; 84439; 84443; 85025

== ENCOUNTER 2024-07-11 10:55 | Outpatient (REF) | payer MEDICARE, SELFPAY ==
--- OUTSIDE RECORDS SUMMARY | 2024-07-11 12:09 | XMS_ITS | Data Portability ---
Author Organization [place] - [facility], Allergy Address [address] [place] [phone] Care Team Providers Care Measurement Technician Name Role Phone JAMILAH SOFIA Primary Care [...] amplification bilaterally. I recommended she contact her clinic assistant at [facility] to discuss this in more detail. Once again I recommended against consideration of further revision surgery in her left ear. Not available 10/05/2023 16:36:27 Plan of Treatment [...] audio gram No observ ation record ed. [email or web address] Not Available 04/2023 14:46:09 Result Notes None recorded. 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 62007384 Active 2016 Otosclero sis involving oval window, nonoblite rative, bilateral ; Note: Date Diagnosed : 10/27/2016 1:16 PM (H80.03) Not Available [facility] 4 02:29:06 Mixed conductiv e and sensorine ural hearing loss of left ear 50097037993 107 Active 2016 Mixed conductiv e and sensorine ural hearing loss, unilatera l, left ear with restricte d hearing on the contralat eral side; Note: Date Diagnosed : 10/27/2016 11:22 AM (H90.A32) Not Available [facility] 4 02:29:00 Sensorine ural hearing loss in right ear 06395785454 100 Active 2016 Sensorine ural hearing loss, unilatera l, right ear, with restricte d hearing on the contralat eral side; Note: Date Diagnosed : 10/27/2016 11:22 AM (H90.A21) Not Available [facility] 4 02:29:04 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 Procedures Surgical History Date Name Laterality Status Provider Name and Address Organization Details Recorded Time 10/05/2023 Comp Audio with Tymps - 21994 & 11233 completed RICK MENDEZ [address] [place] [address], [phone], [facility] 10/05/2023 15:01:17 Imaging Results None recorded. Procedure Notes None recorded. Medical Equipment None Reported. Allergies Allergen ID Allergen Name Allergen Category Reaction Reaction Severity Criticality Documentation Date Start Date Code Code System Note Provider Name and Address Organization Details Recorded Time 684874 amoxicill in medicatio n Not available Not available Not available 10/05/2023 723 RxNorm Adrien beth [facility] 4 15:45:41 60879 levofloxa lyubov medicatio n other Not available Not available 06/23/2023 48745 RxNorm React ion: unkno wn, unspe cifie d;; Not Available [facility] 4 00:58:56 23893 morphine medicatio n other Not available Not available 06/23/2023 7052 RxNorm React ion: unkno wn, unspe cifie d;; Not Available [facility] 4 00:58:57 50006 Product containin g penicilli n (product) medicatio n other Not available Not available 06/23/2023 02007 8001 SNOMED React ion: unkno wn, unspe cifie d;; Not Available [facility] 4 00:59:04 Medications Name Sig Start Date [...] elayed release 10/04 completed Medicati on ID: [id number] D uration Value: 30 Brand Name: omeprazo le Send Method: E-Prescr ibed Sub s Allowed: subs OK Speci al Instruct ion: take 1 capsule by mouth once daily Me dication GenericN mary lou: omeprazo le Not Available Not Available Not Available lorazepam 1 mg tablet 10/04 completed Medicati on ID: 498390 D uration Value: 22 Brand Name: lorazepa [...] once a day active Medicati on ID: 825963 D uration Value: 30 Brand Name: Zyrtec [...] Updated DateTime 10/05/2023 152.4 cm 30.9 kg/m2 35821.59 g Adrien Kim [place] - [facility] 10/05/2023 15:51:24 Social History None recorded. Functional Status None recorded. Mental Status None recorded. Family History Nothing Reported. Medical History No medical history recorded. Gynecological HistoryNo gynecological history recorded. 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 Left ear: Mild sloping to profound mixed hearing loss with excellent word recognitio n. Tympanomet ry: Right Ear:Type A Left Ear:Type C Sensorineu ral hearing loss in right ear 6847938216 9100 H90.A21 Health Concerns Section Related Observation LastModified by Organization Detai ls LastModified Time None Recorded Concern Status LastModified by Organization Details LastModified Time None Recorded Advance Directives Directive None Recorded Payers Insurance Date Sequence Insurance Name Policy Number Policy Maldonado Covered Member ID Maldonado Member ID Guarantor Name 10/05/2023 1 [facility]: MEDICARE PPO BLUE (MEDICARE REPLACEMENT PPO) [id number] Janis Rosario Mukesh [id number] Janis Mayorga Notes Date Note Type Note Provider Name and Address Organization Details Recorded Time 10/05/2023 text/html 73 year old alka goff [place] [address] Elkins. History of stapes surgeries bilaterally; the right was done by Dr. Mosquera and the left was done by me in 2003. Patient had left sided revision in 2008 with me due to dislocation of the prosthesis following airplane travel. Patient last seen back in 2017 at which point she had sensorineural hearing loss in the right ear and mixed hearing loss in the left ear. I did not recommend further revision surgery on the left ear. Amplification recommended which she obtain through [facility] back in 2017. She has had the device repaired periodically over the years but is not sure whether it is working as well as it should. She comes in today for audiometric testing and discussion regarding amplification options. JOSE ALANIS MD [address] [place] [address], [place], [phone], [facility] - [facility] 10/05/2023 16:38:11 OBGyn Episode No OBEpisode recorded.
== END 2024-07-11 10:56 | disposition home or self-care (01) ==
LOC: HO.MAMMO 10:55
PROVIDERS: PCP Internal Medicine; Visit Provider Internal Medicine
DX: Z12.31 Encounter for screening mammogram for malignant neoplasm of breast (principal)
CPT/HCPCS: 77063; 77067

== ENCOUNTER → 2024-07-11 11:15 | Outpatient (BNV) | payer MEDICARE, SELFPAY | PROVIDERS: PCP Internal Medicine; Visit Provider Internal Medicine | DX: Z12.31 Encounter for screening mammogram for malignant neoplasm of breast (principal) | CPT/HCPCS: 77063; 77067 ==

== ENCOUNTER 2024-07-18 10:54 | Outpatient (AMB) | payer MEDICARE, SELFPAY ==
[2024-07-18 10:57] VITALS: BP 134/72; PULSE 77; TEMP 36.2; O2SAT 97; BMI 30.7
--- NOTE | 2024-07-18 10:57 | MHC.PC.OV ---
Vital Signs 07/18/24 10:57 Height 5 ft Weight 157 lb 6 oz BMI 30.7 BP 134/72 Blood Pressure Location Lt brachial Position Sitting Pulse 77 Pulse Source Pulse Oximeter Temp 97.1 F Temp Source Temporal Artery Scan Pulse Oximetry (%) 97 Oxygen Delivery Method Room Air Intake Visit Reasons: 5 month f/u Allergies amoxicillin [AMOXICILLIN] Allergy (Severe, Verified 07/18/24 11:00) ITCHINESS, hives, itching, scratchy throat feathers Allergy (Severe, Verified 07/18/24 11:00) ITCHINESS hydromorphone [HYDROMORPHONE] Allergy (Severe, Verified 07/18/24 11:00) REDNESS,itching,hives penicillin V Allergy (Severe, Verified 07/18/24 11:00) Itching,hives shellfish derived Allergy (Severe, Verified 07/18/24 11:00) Hives, itching Sulfa (Sulfonamide Antibiotics) [SULFA (SULFONAMIDE ANTIBIOTICS)] Allergy (Severe, Verified 07/18/24 11:00) ITCHINESS,hives latex [LATEX] Allergy (Intermediate, Verified 07/18/24 11:00) SWELLING/HIVES levofloxacin [From LEVAQUIN] Adverse Reaction (Severe, Verified 07/18/24 11:00) HALLUCINATIONS montelukast [From Singulair] Adverse Reaction (Intermediate, Verified 07/18/24 11:00) RLS clams Allergy (Severe, Uncoded 07/18/24 11:00) Anaphylaxis shell fish Allergy (Mild, Uncoded 07/18/24 11:00) Anaphylaxis NO MRI due to metal in the ear Allergy (Unknown, Uncoded 07/18/24 11:00) Unknown Medication List - Last Reconciled 07/18/24 by Nathanael Moreno MD albuterol sulfate 90 mcg/actuation 2 puffs inhalation Q6H PRN alprazolam 0.25 mg PO DAILY calcium [id number] no.293 260 mg calcium- 25 mcg-50 mg (Alive Calcium-Vitamin D3) 1 tab PO .QD cetirizine (Zyrtec) 10 mg PO DAILY clotrimazole-betamethasone 1-0.05 % 1 appl topical BID 2 weeks dicyclomine 10 mg PO TID eszopiclone (Lunesta) 3 mg PO BEDTIME 30 days fluticasone propionate 50 mcg/actuation (Flonase Allergy Relief) 2 sprays intranasal DAILY Tobacco use date assessed: 07/18/24 Fall risk assessment: 1 Fall in past year Last assessed Fall Risk: 07/18/24 Dental Screening Dental Screen Date: 07/18/24 Did you have a dental visit in the last 12 months?: Yes Did you have a dental problem in the last 6 months where you did not have access to dental care?: No Was dental information given to patient?: Patient has dentist [facility] Medical History (Updated 07/18/24 @ 11:23 by Nathanael Moreno MD) Neck pain History of COVID-19 Osteoarthritis Vitamin D deficiency Hypercholesterolemia Varicose vein of leg Carpal tunnel syndrome on both sides Tubular adenoma of colon Restless leg syndrome Thrombocytopenia Obesity (BMI 30-39.9) Degenerative disc disease, lumbar Anxiety Osteoarthritis of left knee Surgical History History of total right knee replacement H/O repair of rotator cuff History of surgery History of colonoscopy History of stapedectomy H/O breast biopsy History of tonsillectomy Family History Father Dementia Mother Lung cancer Brother Prostate cancer Social History Housing: House Alcohol intake: current Alcohol intake frequency: a few times a month Patient Tobacco Use Status: Former Tobacco user Tobacco use type: Cigarette Years Smoked: quit 1999 e-Cigarette/Vaping Use: Never Used Second Hand Smoke Exposure: Yes Substance Use Type: Marijuana service: No Current occupational status: retired Cognitive needs: No Hearing needs: No Vision needs: Yes Questionnaire PHQ-9 Over the last 2 weeks, how often have you been bothered by any of the following problems? 1. Little interest or pleasure in doing things: not at all 2. Feeling down, depressed, or hopeless: not at all 3. Trouble falling or staying asleep, or sleeping too much: several days 4. Feeling tired or having little energy: several days 5. Poor appetite or overeating: not at all 6. Feeling bad about yourself - or that you are a failure or have let yourself or your family down: not at all 7. Trouble concentrating on things, such as reading the newspaper or watching television: not at all 8. Moving or speaking so slowly that other people could have noticed. Or the opposite - being so fidgety or restless that you have been moving around a lot more than usual: not at all 9. Thoughts that you would be better off or of hurting yourself in some way: not at all Total score: 2 Depression Screening Interpretation: Negative Depression Screening Done: Yes Source: Developed by Drs. Fausto Garcia, Corinna Barnes, Favio Dodd and colleagues, with an educational jeff from [employer]. Thrive Questionnaire Date Thrive assessed: 07/18/24 I am a: Patient What is your living situation today?: I have a steady place to live Within the past 12 months, did the food you bought not last and you didn't have the money to get more?: Never true Within the past 12 months, did you worry whether your food would run out before you got money to buy more?: Never true Do you have trouble paying for medicines?: No Do you have trouble getting transportation to medical appointments?: No Do you have trouble paying your heating and electricity bill?: No Do you have trouble taking care of your child, family member or friend?: No Do you have trouble with day-to-day activities such as bathing, preparing meals, shopping, managing finances, etc.?: No Are you currently unemployed and looking for a job?: No Are you interested in more education?: No Please select the resources that you would like help with: None Currently or been in a relationship where the following occur: No concerns reported THRIVE Score: 0 AUDIT C Alcohol Use Questionnaire (AUDIT-C) 1. How often do you have a drink containing alcohol?: 2-3 times a week 2. How many drinks containing alcohol do you have on a typical day when you are drinking?: 1 or 2 3. How often do you have six or more drinks on one occasion?: Never Total Score: 3 ISATU-7 AMB Questionnaire ISATU-7 Date ISATU - 7 assessed: 07/18/24 Feeling nervous, anxious, or on edge: 0 = Not at all Not being able to stop or control worryin = Not at all Worrying too much about different things: 0 = Not at all Trouble relaxin = Not at all Being so restless that it is hard to sit still: 0 = Not at all Becoming easily annoyed or irritable: 0 = Not at all Feeling afraid as if something awful might happen: 0 = Not at all Total ISATU-7 score (0-4 normal; 5-9 mild; 10-14 moderate; 15-21 severe): 0 Source: Developed by Drs. Fausto Garcia, Corinna Barnes, Favio Dodd and colleagues, with an educational jeff from [employer]. Physical exam (Primary Care) Vital Signs: Last Vital Signs Temp 97.1 F 07/18/24 10:57 Pulse 77 07/18/24 10:57 BP 134/72 07/18/24 10:57 Pulse Ox 97 07/18/24 10:57 Oxygen Delivery Method Room Air 07/18/24 10:57 BMI result Body Mass Index 30.7 Tobacco/Smoking Status: Tobacco use Status Tobacco use date assessed 07/18/24 07/18/24 11:03 Patient Tobacco Use Status Former Tobacco user 07/18/24 11:03 Tobacco use type Cigarette 07/18/24 11:03 e-Cigarette/Vaping Use Never Used 07/18/24 11:03 PHQ-9: PHQ-9 Score PHQ-9: Total score 2 07/18/24 11:10 Depression Screening Interpretation: Negative Thrive Assessment: Date of Thrive Assessment Date Thrive assessed 07/18/24 07/18/24 11:03 Currently or been in a relationship where the following occur: No concerns reported Const General: alert; No acute distress Eyes Conjunctivae: conjunctivae normal Resp Auscultation: clear to auscultation bilaterally Cardio Rate: regular rate Rhythm: regular rhythm GI Inspection: Yes normal to inspection Extrem General: Yes normal to inspection and No edema Coding Level of Care Code Est Pt Level 4 (49886) Complex EM visit Add On G2211 Diagnoses Hypercholesterolemia E78.00 Impaired glucose tolerance R73.02 Obesity (BMI 30.0-34.9) E66.9 Generalized anxiety disorder F41.1 GERD (gastroesophageal reflux disease) K21.9 Osteoarthritis of left knee M17.12 Thyroid enlargement E04.9 Assessment & Plan Assessment & Plan (1) Hypercholesterolemia: Code(s): E78.00 - Pure hypercholesterolemia, unspecified Category: Medical Plan: Avoid fried foods, chicken skin, eggs, butter margarine, pastries and meat. Be it pork or beef they have a lot of cholesterol LDL goal of less than 130 and triglyceride of less than 150 (2) Impaired glucose tolerance: Code(s): R73.02 - Impaired glucose tolerance (oral) Category: Medical Plan: Decrease the amount of carbohydrate intake, pasta, bread, rice and potatoes are all sugar and that is aside from all the sweet stuff, remember that fruits are good but they are Sweet also. (3) Obesity (BMI 30.0-34.9): Code(s): E66.9 - Obesity, unspecified Category: Medical Plan: Diet and exercise (4) Generalized anxiety disorder: Code(s): F41.1 - Generalized anxiety disorder Category: Medical Plan: Continue with present medication as needed (5) GERD (gastroesophageal reflux disease): Code(s): K21.9 - Gastro-esophageal reflux disease without esophagitis Category: Medical Plan: Avoid the foods that causes that usually spicy foods, tomato products, juices, coffee, soda and foods that your sensitive to. After eating do not lie down, allow 3-4 hours before in lie down. And keep the head of bed above 30 degrees to avoid the acid from going up. (6) Osteoarthritis of left knee: Comment: Dr. Uribe 03/2016 [facility] Code(s): M17.12 - Unilateral primary osteoarthritis, left knee Category: Medical Plan: seeing orthopedics (7) Thyroid enlargement: Code(s): E04.9 - Nontoxic goiter, unspecified Category: Medical Plan History of Present Illness The patient is a 73-year-old female presenting with a follow-up for chronic conditions of hypercholesterolemia and lumbar degenerative disc disease. Her recent increased LDL level from 107 mg/dL to 132 mg/dL is concerning, particularly given her preference to manage this without pharmacological intervention. Instead, she plans to return to her routine physical activities to aid in management. The patient?s past medical history includes lumbar degenerative disc disease contributing to chronic pain, anxiety, prior tubular adenoma, GERD, impaired glucose tolerance, osteoporosis, and obesity. Her recent management includes dietary adjustments for cholesterol and GERD, with avoidance of rich foods and an intention for increased activity. She notes reliance on Advil for her knee arthritis pain and a history of seasonal bronchitis needing albuterol use on occasion. Her mental health is currently affected by family health issues, with heightened stress due to her brother's advanced thyroid cancer diagnosis. Furthermore, the patient has lost multiple friends and supports her daughter and granddaughter through emotional distress, highlighting the need to occasionally utilize Xanax. Health Maintenance - Mammogram conducted July 2024: Up to date - Bone Density Test scheduled for June 2023: Ongoing monitoring of osteoporosis - Laboratory work completed June 2024: Normal blood count, electrolytes, renal function, and liver function tests; increased LDL level noted - Dietary and lifestyle adjustments for cholesterol management: Recommended increased physical activity and reduced meat intake - Pneumonia and shingles vaccination: Discussed, but patient declines - Colonoscopy anticipated in the coming year, post-2020 procedure - Inquiry into thyroid health: Thyroid levels currently within normal limits, but patient to undergo ultrasound due to family history of thyroid disease Social History [place] - Engages in artwork as a form of meditation and stress relief - Reports decreased physical activity due to weather and knee pain, impacting weight management - Dietary habits include decreased sugar intake, although consuming red meat in accordance with 's preferences, with intent to modify diet - Expresses familial responsibilities, providing emotional support to daughter, granddaughter, and managing stress related to a brother's recent cancer diagnosis Review of Systems - General: Reports occasional anxiety and stress; Denies significant weight gain or loss - Cardiovascular: Reports elevated LDL level; Denies chest pain or palpitations - Respiratory: Reports previous bronchitis; Denies current shortness of breath or wheezing - Gastrointestinal: Reports GERD; Denies recent abdominal pain - Musculoskeletal: Reports knee pain; Denies new injuries - Neurological: Denies new or worsening headaches; Reports stress-related headaches - Endocrine: Reports family history of thyroid disease; Denies symptoms of thyroid dysfunction Physical Exam - HEAD/NECK- No specific objective findings mentioned Results - Labs: Blood work from June 2024 showed normal blood count, electrolytes, renal function, liver function, and thyroid levels, with increased LDL at 132 mg/dL - Radiology: Mammogram up to date as of July 2024 Plan The patient will manage her elevated LDL through dietary changes and increased physical activity, steering clear of medication at this stage. Prayer and thoughtfulness were emphasized for managing her degenerative disc disease and knee osteoarthritis, utilizing NSAIDs and postponing any additional cortisone injections until September. Such proactive monitoring, along with the understanding of her anxiety management underpins her current regimen, balancing factors like family stress and her brother's cancer. Thyroid evaluation via ultrasound due to familial context, and continued preventive care and diagnostic procedures for her persistent and progressive conditions are to be pursued. Proper counseling and anticipatory guidance of her stress management and family support are encouraged to alleviate psychosocial burdens. Patient was informed and verbally consented to the use of an ambient scribe for clinic note documentation during this visit. Discussion Notes During our discussion, I reviewed with the patient the significance of maintaining her LDL levels below 130 mg/dL through dietary adjustments and increased activity, with potential pharmacological interventions considered. We reviewed both the benefits and limitations of pain management for her lumbar and knee arthrosis, including options like NSAIDs and awaiting cortisone shots. We discussed her family history of thyroid disease, culminating in an arranged ultrasound to assess any hidden abnormalities. I encouraged her current lifestyle changes to address her GERD, discussing interventions to reduce exacerbations, alongside addressing her anxiety with Xanax only when necessary given her current life stressors. I addressed her concerns about family support following her brother's cancer diagnosis, emphasizing the importance of self-care and stress reduction. Future evaluations include her mammogram and colonoscopy compliance as part of health maintenance. Patient Instructions - Keep active with low-impact exercises and aim to reduce meat in your diet. - Continue GERD management with dietary modifications and avoid trigger foods. - Use Advil for knee pain wisely; wait until September for another cortisone shot if necessary. - Use Xanax sparingly to manage anxiety, specifically during high-stress events. - Schedule and attend a thyroid ultrasound to stay proactive about your health. - Maintain routine health screenings: Follow up with colonoscopy as recommended next year. - Follow instructions for any stress reduction techniques and maintain family support. Orders: Orders US thyroid Today E04.9 - Nontoxic goiter, unspecified Medications: Refilled alprazolam 0.25 mg PO DAILY 30 tabs 0RF F41.1 - Generalized anxiety disorder
--- OUTSIDE RECORDS SUMMARY | 2024-07-18 12:25 | XMS_ITS | Data Portability ---
Author Organization [place] [facility], Allergy Address [address] [place] [id number] Care Team Providers Care Tour Driver Name Role Phone JAMILAH SOFIA Primary Care [...] amplification bilaterally. I recommended she contact her operations specialist at [facility] to discuss this in more [...] audio gram No observ ation record ed. [email or web address] Not Available 04/2023 14:46:09 Result Notes None recorded. 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 17178917 Active 2016 Otosclero sis involving oval window, nonoblite rative, bilateral ; Note: Date Diagnosed : 10/27/2016 1:16 PM (H80.03) Not Available [facility] 4 02:29:06 Mixed conductiv e and sensorine ural hearing loss of left ear 54287876071 107 Active 2016 Mixed conductiv e and sensorine ural hearing loss, unilatera l, left ear with restricte d hearing on the contralat eral side; Note: Date Diagnosed : 10/27/2016 11:22 AM (H90.A32) Not Available [facility] 4 02:29:00 Sensorine ural hearing loss in right ear 43696211056 100 Active 2016 Sensorine ural hearing loss, unilatera l, right ear, with restricte d hearing on the contralat eral side; Note: Date Diagnosed : 10/27/2016 11:22 AM (H90.A21) Not Available [facility] 4 02:29:04 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 4 16:49:34 Problem Notes None recorded. Procedures Surgical History Date Name Laterality Status Provider Name and Address Organization Details Recorded Time 10/05/2023 Comp Audio with Tymps - 21221 & 11289 completed RICK MENDEZ [address] [place] [address], [phone], [facility] 10/05/2023 15:01:17 Imaging Results None recorded. Procedure Notes None recorded. Medical Equipment None Reported. Allergies Allergen ID Allergen Name Allergen Category Reaction Reaction Severity Criticality Documentation Date Start Date Code Code System Note Provider Name and Address Organization Details Recorded Time 380006 amoxicill in medicatio n Not available Not available Not available 10/05/2023 723 RxNorm Adrien beth [facility] 4 15:45:41 25017 levofloxa lyubov medicatio n other Not available Not available 06/23/2023 62259 RxNorm React ion: unkno wn, unspe cifie d;; Not Available [facility] 4 00:58:56 96759 morphine medicatio n other Not available Not available 06/23/2023 7052 RxNorm React ion: unkno wn, unspe cifie d;; Not Available [facility] 4 00:58:57 03167 Product containin g penicilli n (product) medicatio n other Not available Not available 06/23/2023 28331 8001 SNOMED React ion: unkno wn, unspe cifie d;; Not Available [facility] 4 00:59:04 Medications Name Sig Start Date [...] elayed release 10/04 completed Medicati on ID: [id number] D uration Value: 30 Brand Name: omeprazo le Send Method: E-Prescr ibed Sub s Allowed: subs OK Speci al Instruct ion: take 1 capsule by mouth once daily Me dication GenericN mary lou: omeprazo le Not Available Not Available Not Available lorazepam 1 mg tablet 10/04 completed Medicati on ID: [id number] D uration Value: 22 Brand Name: lorazepa [...] once a day active Medicati on ID: [id number] D uration Value: 30 Brand Name: Zyrtec [...] Updated DateTime 10/05/2023 152.4 cm 30.9 kg/m2 29034.59 g Adrien Kim [place] [facility] 10/05/2023 15:51:24 Social History None recorded. Functional Status None recorded. Mental Status None recorded. Family History Nothing Reported. Medical History No medical history recorded. Gynecological HistoryNo gynecological history recorded. Obstetrics History GPAL:G 0 P 0 0 0 0 Past Encounters Encounter ID Performer Location Encounter Start Date Encounter Closed Date Diagnosis/Indication Diagnosis SNOMED-CT Code Diagnosis ICD10 Code Diagnosis Note [id number] JOSE ALANIS MD [facility] on [address] [place] [phone] 10/05/2023 14:22:23 10/05/2023 16:35:20 Bilateral otosclerosis of ossicle of ears [id number] 766345 H80.93 Mixed cond uctive and sensorineural hearing loss of left ear 4632374872 9107 H90.A32 Audiologic al evaluation results: Right ear: Normal sloping to moderately severe sensorineu ral hearing loss with excellent word recognitio n. Left ear: Mild sloping to profound mixed hearing loss with excellent word recognitio n. Tympanomet ry: Right Ear:Type A Left Ear:Type C Sensorineu ral hearing loss in right ear 7908349480 9100 H90.A21 Health Concerns Section Related Observation LastModified by Organization Detai ls LastModified Time None Recorded Concern Status LastModified by Organization Details LastModified Time None Recorded Advance Directives Directive None Recorded Payers Insurance Date Sequence Insurance Name Policy Number Policy Maldonado Covered Member ID Maldonado Member ID Guarantor Name 10/05/2023 1 [facility]: MEDICARE PPO BLUE (MEDICARE REPLACEMENT PPO) [id number] Janis Rosario Mukesh [id number] Janis Mayorga Notes Date Note Type [...] ear. Amplification recommended which she obtain through [facility] back in 2017. She has had the device repaired periodically over the years but is not sure whether it is working as well as it should. She comes in today for audiometric testing and discussion regarding amplification options. JOSE ALANIS MD [address] [place] [address], [place], [phone], [facility] - [facility] 10/05/2023 16:38:11 OBGyn Episode No OBEpisode recorded.
== END 2024-07-18 11:32 | disposition home or self-care (01) ==
LOC: HO.HMCH 10:55
PROVIDERS: PCP Internal Medicine; Visit Provider Internal Medicine
DX: E78.00 Pure hypercholesterolemia, unspecified (principal); R73.02 Impaired glucose tolerance (oral); E66.9 Obesity, unspecified; Z68.30 Body mass index [BMI] 30.0-30.9, adult; F41.1 Generalized anxiety disorder; K21.9 Gastro-esophageal reflux disease without esophagitis; M17.12 Unilateral primary osteoarthritis, left knee; E04.9 Nontoxic goiter, unspecified

== ENCOUNTER → 2024-07-18 10:54 | Outpatient (BNVA) | payer MEDICARE, SELFPAY | PROVIDERS: PCP Internal Medicine; Visit Provider Internal Medicine | DX: R73.02 Impaired glucose tolerance (oral) (principal); E78.00 Pure hypercholesterolemia, unspecified; E66.9 Obesity, unspecified; Z68.30 Body mass index [BMI] 30.0-30.9, adult; F41.1 Generalized anxiety disorder; K21.9 Gastro-esophageal reflux disease without esophagitis; M17.12 Unilateral primary osteoarthritis, left knee; E04.9 Nontoxic goiter, unspecified; M51.369 Other intervertebral disc degeneration, lumbar region without mention of lumbar back pain or lower extremity pain | CPT/HCPCS: 96127; 99212 ==

== ENCOUNTER 2024-08-25 12:10 | Outpatient (REF) | payer MEDICARE, SELFPAY ==
--- NOTE | ~2024-08-25 | US_ITS ---
EXAMINATION: US THYROID HISTORY: E04.9 - Nontoxic goiter, unspecified TECHNIQUE: Real-time grayscale ultrasound imaging was performed and images were reviewed. COMPARISON: There are no prior studies available for comparison. FINDINGS: SIZE: The right thyroid lobe measures 4.1 x 1.2 x 1.7 cm. The left thyroid lobe measures 3.9 x 1.7 x 1.5 cm. The isthmus measures 3 mm. FLOW: Flow to the gland is normal. ECHOGENICITY: The echotexture of the gland is homogeneous. NODULES: There is a 2 mm spongiform nodule on the left. No solid nodules are identified. US/US thyroid IMPRESSION: 2 mm spongiform nodule on the left. Otherwise unremarkable thyroid ultrasound. ACR TI-RADS Guidelines TR1 (0 points): Benign, No follow-up or biopsy required TR2 (2 points): Not Suspicious, No biopsy or follow up indicated TR3 (3 points): Mildly Suspicious, FNA if >= 2.5 cm, Follow if >= 1.5 cm TR4 (4-6 points): Moderately Suspicious, FNA if >= 1.5 cm, Follow if >= 1.0 cm TR5 (>=7 points): Highly Suspicious, FNA if >= 1.0 cm, Follow if >= 0.5 cm Electronically signed by: Fausto Kim MD 08/25/2024 12:51 PM EDT
--- OUTSIDE RECORDS SUMMARY | 2024-08-25 12:47 | XMS_ITS | Patient Health Record ---
Author Organization [facility] Address [address] [place] [phone] Care Team Providers Care Individual Pension Adviser Name Role Phone Fausto Brown Unavailable [phone] Reason For Referral No Information Plan Of Treatment No Information
--- OUTSIDE RECORDS SUMMARY | 2024-08-25 12:47 | XMS_ITS | Data Portability ---
Author Organization [place] - [facility], Allergy Address [address] [place] [phone] Care Team Providers Care [employer] Installer Name Role Phone JAMILAH SOFIA Primary Care [...] amplification bilaterally. I recommended she contact her commercial manager at [facility] to discuss this in more detail. Once again I recommended against consideration of further revision surgery in her left ear. [email or web address] Not available 10/05/2023 16:36:27 Plan of Treatment [...] audio gram No observ ation record ed. [email or web address] Not Available 04/2023 14:46:09 Result Notes None recorded. 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 19110462 Active 2016 Otosclero sis involving oval window, nonoblite rative, bilateral ; Note: Date Diagnosed : 10/27/2016 1:16 PM (H80.03) Not Available formerly [facility] 4 02:29:06 Mixed conductiv e and sensorine ural hearing loss of left ear 87509288176 107 Active 2016 Mixed conductiv e and sensorine ural hearing loss, unilatera l, left ear with restricte d hearing on the contralat eral side; Note: Date Diagnosed : 10/27/2016 11:22 AM (H90.A32) Not Available formerly [facility] 4 02:29:00 Sensorine ural hearing loss in right ear 53530171194 100 Active 2016 Sensorine ural hearing loss, unilatera l, right ear, with restricte d hearing on the contralat eral side; Note: Date Diagnosed : 10/27/2016 11:22 AM (H90.A21) Not Available formerly [facility] 4 02:29:04 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 Procedures Surgical History Date Name Laterality Status Provider Name and Address Organization Details Recorded Time 10/05/2023 Comp Audio with Tymps - 05825 & 48284 completed RICK MENDEZ [address] [place] [address], [phone], [facility] 10/05/2023 15:01:17 Imaging Results None recorded. Procedure Notes None recorded. Medical Equipment None Reported. Allergies Allergen ID Allergen Name Allergen Category Reaction Reaction Severity Criticality Documentation Date Start Date Code Code System Note Provider Name and Address Organization Details Recorded Time 507859 amoxicill in medicatio n Not available Not available Not available 10/05/2023 723 RxNorm Adrien beth [place] - [facility] 4 15:45:41 77540 levofloxa lyubov medicatio n other Not available Not available 06/23/2023 47584 RxNorm React ion: unkno wn, unspe cifie d;; Not Available formerly [facility] 4 00:58:56 94050 morphine medicatio n other Not available Not available 06/23/2023 7052 RxNorm React ion: unkno wn, unspe cifie d;; Not Available formerly [facility] 4 00:58:57 84388 Product containin g penicilli n (product) medicatio n other Not available Not available 06/23/2023 68596 8001 SNOMED React ion: unkno wn, unspe cifie d;; Not Available formerly [facility] 4 00:59:04 Medications Name Sig Start Date [...] TO THE AFFECTED AREA NEEDED FOR FLARES 08/26 /2024 completed Not Available Not Available Not Available omeprazol e 20 mg capsule,d elayed release 10/04 completed Medicati on ID: [id number] D uration Value: 30 Brand Name: omeprazo le Send Method: E-Prescr ibed Sub s Allowed: subs OK Speci al Instruct ion: take 1 capsule by mouth once daily Me dication GenericN mary lou: omeprazo le Not Available Not Available Not Available lorazepam 1 mg tablet 10/04 completed Medicati on ID: [id number] D uration Value: 22 Brand Name: lorazepa [...] once a day active Medicati on ID: [id number] D uration Value: 30 Brand Name: Zyrtec [...] Updated DateTime 10/05/2023 152.4 cm 30.9 kg/m2 78343.59 g Adrien Kim [place] - [facility] 10/05/2023 15:51:24 Social History None recorded. Functional Status None recorded. Mental Status None recorded. Family History Nothing Reported. Medical History No medical history recorded. Gynecological HistoryNo gynecological history recorded. Obstetrics History GPAL:G 0 P 0 0 0 0 Past Encounters Encounter ID Performer Location Encounter Start Date Encounter Closed Date Diagnosis/Indication Diagnosis SNOMED-CT Code Diagnosis ICD10 Code Diagnosis Note [id number] JOSE ALANIS MD [facility] on [address] [place] [address] 10/05/2023 14:22:23 10/05/2023 16:35:20 Bilateral otosclerosis of ossicle of ears [id number] 731837 H80.93 Mixed cond uctive and sensorineural hearing loss of left ear 0805944810 9107 H90.A32 Audiologic al evaluation results: Right ear: Normal sloping to moderately severe sensorineu ral hearing loss with excellent word recognitio n. Left ear: Mild sloping to profound mixed hearing loss with excellent word recognitio n. Tympanomet ry: Right Ear:Type A Left Ear:Type C Sensorineu ral hearing loss in right ear [id number] 9100 H90.A21 Health Concerns Section Related Observation LastModified by Organization Detai ls LastModified Time None Recorded Concern Status LastModified by Organization Details LastModified Time None Recorded Advance Directives Directive None Recorded Payers Insurance Date Sequence Insurance Name Policy Number Policy Maldonado Covered Member ID Maldonado Member ID Guarantor Name 10/05/2023 1 [facility]: MEDICARE PPO BLUE (MEDICARE REPLACEMENT PPO) [id number] Janis Rosario Mukesh [id number] Janis Abraham Mukesh Notes Date Note Type Note Provider Name and Address Organization Details Recorded Time 10/05/2023 text/html 73 year old alka goff last [place] [address] Elikns. History of stapes surgeries bilaterally; the right [...] ear. Amplification recommended which she obtain through [facility] back in 2017. She has had the device repaired periodically over the years but is not sure whether it is working as well as it should. She comes in today for audiometric testing and discussion regarding amplification options. JOSE ALANIS MD [address] [place] [address], [place], [phone], [facility] - [facility] 10/05/2023 16:38:11 OBGyn Episode No OBEpisode recorded.
== END 2024-08-25 12:11 | disposition home or self-care (01) ==
LOC: HO.US 12:10
PROVIDERS: PCP Internal Medicine; Visit Provider Internal Medicine
DX: E04.9 Nontoxic goiter, unspecified (principal)
CPT/HCPCS: 76536

== ENCOUNTER → 2024-08-25 12:12 | Outpatient (BNV) | payer MEDICARE, SELFPAY | PROVIDERS: PCP Internal Medicine; Visit Provider Radiology Diagnostic Radiology | DX: E04.1 Nontoxic single thyroid nodule (principal) | CPT/HCPCS: 76536 ==

== ENCOUNTER 2024-11-14 11:01 | Outpatient (AMB) | payer MEDICARE, SELFPAY ==
[2024-11-14 11:07] VITALS: BP 132/74; PULSE 81; TEMP 36.3; O2SAT 98; BMI 30.6
--- NOTE | 2024-11-14 11:07 | A.OFFPC_ITS ---
Vital Signs 11/14/24 11:07 Height 5 ft Weight 156 lb 8 oz BMI 30.6 BP 132/74 Blood Pressure Location Lt brachial Position Sitting Pulse 81 Pulse Source Pulse Oximeter Temp 97.3 F Temp Source Temporal Artery Scan Pulse Oximetry (%) 98 Oxygen Delivery Method Room Air Intake Visit Reasons: ISATU, cholesterol Allergies amoxicillin (AMOXICILLIN) Allergy (Severe, Verified 11/14/24 11:09) ITCHINESS, hives, itching, scratchy throat feathers Allergy (Severe, Verified 11/14/24 11:09) ITCHINESS hydromorphone (HYDROMORPHONE) Allergy (Severe, Verified 11/14/24 11:09) REDNESS,itching,hives penicillin V Allergy (Severe, Verified 11/14/24 11:09) Itching,hives shellfish derived Allergy (Severe, Verified 11/14/24 11:09) Hives, itching Sulfa (Sulfonamide Antibiotics) (SULFA (SULFONAMIDE ANTIBIOTICS)) Allergy (Severe, Verified 11/14/24 11:09) ITCHINESS,hives latex (LATEX) Allergy (Intermediate, Verified 11/14/24 11:09) SWELLING/HIVES levofloxacin (From LEVAQUIN) Adverse Reaction (Severe, Verified 11/14/24 11:09) HALLUCINATIONS montelukast (From Singulair) Adverse Reaction (Intermediate, Verified 11/14/24 11:09) RLS clams Allergy (Severe, Uncoded 11/14/24 11:09) Anaphylaxis shell fish Allergy (Mild, Uncoded 11/14/24 11:09) Anaphylaxis NO MRI due to metal in the ear Allergy (Unknown, Uncoded 11/14/24 11:09) Unknown Medication List - Last Reconciled 11/14/24 by Nathanael Moreno MD albuterol sulfate 90 mcg/actuation 2 puffs inhalation Q6H PRN alprazolam 0.25 mg PO DAILY [BI-EST progesterone/testosterone cream Apply 2 clicks topically twice a day 6 mg/100 mg/1mg/ml; ] calcium [id number] no.293 260 mg calcium- 25 mcg-50 mg (Alive Calcium- Vitamin D3) 1 tab PO .QD cetirizine (Zyrtec) 10 mg PO DAILY clotrimazole-betamethasone 1-0.05 % 1 appl topical BID 2 weeks dicyclomine 10 mg PO TID eszopiclone (Lunesta) 3 mg PO BEDTIME 90 days fluconazole 150 mg PO Q3D 2 doses fluticasone propionate 50 mcg/actuation (Flonase Allergy Relief) 2 sprays intranasal DAILY Tobacco use date assessed: 11/14/24 Fall risk assessment: No Falls in past year Last assessed Fall Risk: 11/14/24 Dental Screening Dental Screen Date: 11/14/24 Did you have a dental visit in the last 12 months?: Yes Did you have a dental problem in the last 6 months where you did not have access to dental care?: No Was dental information given to patient?: Patient has dentist HPI ISATU, cholesterol HPI Details problem of lost memory Location [facility] Medical History Neck pain History of COVID-19 Osteoarthritis Vitamin D deficiency Hypercholesterolemia Varicose vein of leg Carpal tunnel syndrome on both sides Tubular adenoma of colon Restless leg syndrome Thrombocytopenia Obesity (BMI 30-39.9) Degenerative disc disease, lumbar Anxiety Osteoarthritis of left knee Surgical History History of total right knee replacement H/O repair of rotator cuff History of surgery History of colonoscopy History of stapedectomy H/O breast biopsy History of tonsillectomy Family History Father Dementia Mother Lung cancer Brother Prostate cancer Social History Housing: House Alcohol intake: current Alcohol intake frequency: a few times a month Patient Tobacco Use Status: Former Tobacco user Tobacco use type: Cigarette Years Smoked: quit 1999 e-Cigarette/Vaping Use: Never Used Second Hand Smoke Exposure: Yes Substance Use Type: Marijuana service: No Current occupational status: retired Cognitive needs: No Hearing needs: No Vision needs: Yes Questionnaire PHQ-9 Over the last 2 weeks, how often have you been bothered by any of the following problems? 1. Little interest or pleasure in doing things: not at all 2. Feeling down, depressed, or hopeless: not at all 3. Trouble falling or staying asleep, or sleeping too much: several days 4. Feeling tired or having little energy: several days 5. Poor appetite or overeating: not at all 6. Feeling bad about yourself - or that you are a failure or have let yourself or your family down: not at all 7. Trouble concentrating on things, such as reading the newspaper or watching television: not at all 8. Moving or speaking so slowly that other people could have noticed. Or the opposite - being so fidgety or restless that you have been moving around a lot more than usual: not at all 9. Thoughts that you would be better off or of hurting yourself in some way: not at all Total score: 2 Depression Screening Interpretation: Negative Depression Screening Done: Yes Source: Developed by Drs. Fausto Garcia, Corinna Barnes, Favio Dodd and colleagues, with an educational jeff from [employer]. Thrive Questionnaire Date Thrive assessed: 07/18/24 I am a: Patient What is your living situation today?: I have a steady place to live Within the past 12 months, did the food you bought not last and you didn't have the money to get more?: Never true Within the past 12 months, did you worry whether your food would run out before you got money to buy more?: Never true Do you have trouble paying for medicines?: No Do you have trouble getting transportation to medical appointments?: No Do you have trouble paying your heating and electricity bill?: No Do you have trouble taking care of your child, family member or friend?: No Do you have trouble with day-to-day activities such as bathing, preparing meals, shopping, managing finances, etc.?: No Are you currently unemployed and looking for a job?: No Are you interested in more education?: No Please select the resources that you would like help with: None Currently or been in a relationship where the following occur: No concerns reported THRIVE Score: 0 AUDIT C Alcohol Use Questionnaire (AUDIT-C) 1. How often do you have a drink containing alcohol?: 2-3 times a week 2. How many drinks containing alcohol do you have on a typical day when you are drinking?: 1 or 2 3. How often do you have six or more drinks on one occasion?: Never Total Score: 3 ISATU-7 AMB Questionnaire ISAUT-7 Date ISATU - 7 assessed: 07/18/24 Feeling nervous, anxious, or on edge: 1 = Several days Not being able to stop or control worryin = Several days Worrying too much about different things: 1 = Several days Trouble relaxin = Several days Being so restless that it is hard to sit still: 0 = Not at all Becoming easily annoyed or irritable: 0 = Not at all Feeling afraid as if something awful might happen: 2 = More than half the days Total ISATU-7 score (0-4 normal; 5-9 mild; 10-14 moderate; 15-21 severe): 6 Source: Developed by Drs. Fausto Garcia, Corinna Barnes, Favio Dodd and colleagues, with an educational jeff from [employer]. Physical exam (Primary Care) Vital Signs: Last Vital Signs Temp 97.3 F 11/14/24 11:07 Pulse 81 11/14/24 11:07 BP 132/74 11/14/24 11:07 Pulse Ox 98 11/14/24 11:07 Oxygen Delivery Method Room Air 11/14/24 11:07 BMI result Body Mass Index 30.6 Tobacco/Smoking Status: Tobacco use Status Tobacco use date assessed 11/14/24 11/14/24 11:11 Patient Tobacco Use Status Former Tobacco user 11/14/24 11:11 Tobacco use type Cigarette 11/14/24 11:11 e-Cigarette/Vaping Use Never Used 11/14/24 11:11 PHQ-9: PHQ-9 Score PHQ-9: Total score 2 11/14/24 11:28 Depression Screening Interpretation: Negative Thrive Assessment: Date of Thrive Assessment Date Thrive assessed 07/18/24 11/14/24 11:11 Currently or been in a relationship where the following occur: No concerns reported Const General: alert; No acute distress Eyes Conjunctivae: conjunctivae normal Resp Auscultation: clear to auscultation bilaterally Cardio Rate: regular rate Rhythm: regular rhythm GI Inspection: Yes normal to inspection Extrem General: Yes normal to inspection and No edema Coding Level of Care Code Est Pt Level 4 (77484) Complex EM visit Add On G2211 Diagnoses Hypercholesterolemia E78.00 Impaired glucose tolerance R73.02 Obesity (BMI 30.0-34.9) E66.9 GERD (gastroesophageal reflux disease) K21.9 Hepatic steatosis K76.0 Tubular adenoma of colon D12.6 Insomnia G47.00 Generalized anxiety disorder F41.1 Assessment & Plan Assessment & Plan (1) Hypercholesterolemia: Code(s): E78.00 - Pure hypercholesterolemia, unspecified Category: Medical Plan: Avoid fried foods, chicken skin, eggs, butter margarine, pastries and meat. Be it pork or beef they have a lot of cholesterol LDL goal of less than 130 and triglyceride of less than 150. June 2024 last blood work (2) Impaired glucose tolerance: Code(s): R73.02 - Impaired glucose tolerance (oral) Category: Medical Plan: Decrease the amount of carbohydrate intake, pasta, bread, rice and potatoes are all sugar and that is aside from all the sweet stuff, remember that fruits are good but they are Sweet also. This is under control (3) Obesity (BMI 30.0-34.9): Code(s): E66.9 - Obesity, unspecified Category: Medical Plan: Diet and exercise (4) GERD (gastroesophageal reflux disease): Code(s): K21.9 - Gastro-esophageal reflux disease without esophagitis Category: Medical Plan: Avoid the foods that causes that usually spicy foods, tomato products, juices, coffee, soda and foods that your sensitive to. After eating do not lie down, allow 3-4 hours before in lie down. And keep the head of bed above 30 degrees to avoid the acid from going up. (5) Hepatic steatosis: Comment: July 2023 Code(s): K76.0 - Fatty (change of) liver, not elsewhere classified Category: Medical Plan: Low-fat diet and exercise (6) Tubular adenoma of colon: Comment: February 2014 insure fecal globin negative January Code(s): D12.6 - Benign neoplasm of colon, unspecified Category: Medical Plan: Patient is reminded about colonoscopy. (7) Insomnia: Code(s): G47.00 - Insomnia, unspecified Category: Medical Plan: On Lunesta (8) Generalized anxiety disorder: Code(s): F41.1 - Generalized anxiety disorder Category: Medical Plan: Continue present medication Plan History of Present Illness The patient is a 74-year-old female presenting for a follow-up visit. She has a history of hypercholesterolemia, with her last LDL cholesterol level recorded at 132 mg/dL, which is slightly elevated above the target of less than 130 mg/dL. The patient is managing her cholesterol through diet and exercise, aiming for an LDL goal of less than 130 mg/dL and triglycerides of less than 150 mg/dL. The patient has a history of tubular adenoma of the colon, with the last colonoscopy performed in January 2021. She is reminded about the importance of regular colonoscopy screenings. She has osteoporosis, with the last bone density test conducted in June 2023. The patient experiences insomnia and generalized anxiety disorder, for which she is currently taking Lunesta and Xanax as needed. She reports stress and difficulty sleeping, often waking up at night, which she attributes to her current life stressors. The patient has hepatic steatosis and gastroesophageal reflux disease (GERD), managed with a low-fat diet and reflux precautions. A thyroid ultrasound in August 2024 revealed a 2 mm spongiform nodule on the left thyroid. Her preventative care measures include an up-to-date mammogram. Health Maintenance - Mammogram is up to date - Regular colonoscopy screenings recommended Social History - Reports stress related to family dynamics and terminal illness of a sibling - Plans to travel to [facility] with a friend Review of Systems - Neurological: Reports stress and difficulty sleeping, denies memory loss - Gastrointestinal: Reports GERD, managed with diet Physical Exam Results - Labs: Last blood work showed normal blood count, normal electrolytes, normal renal function, normal hemoglobin A1c, normal liver function, LDL cholesterol slightly elevated at 132 mg/dL - Imaging: Thyroid ultrasound in August 2024 showed a 2 mm spongiform nodule on the left thyroid Plan Patient was informed and verbally consented to the use of an ambient scribe for clinic note documentation during this visit. 1. Hypercholesterolemia The patient's LDL cholesterol level is slightly elevated at 132 mg/dL, with a target goal of less than 130 mg/dL. The plan includes dietary modifications and regular exercise to achieve the LDL goal, with a follow-up to monitor cholesterol levels. 2. Tubular Adenoma Of The Colon The patient is reminded to maintain regular colonoscopy screenings, with the last performed in January 2021. 3. Osteoporosis The patient is advised to continue monitoring bone density, with the last test conducted in June 2023. 4. Insomnia The patient is currently taking Lunesta for insomnia and reports stress-related sleep disturbances. The plan includes managing stressors and considering alternative sleep aids if necessary. 5. Generalized Anxiety Disorder The patient experiences anxiety, managed with Xanax as needed, and reports stress due to family dynamics and personal circumstances. 6. Hepatic Steatosis The patient is advised to maintain a low-fat diet to manage hepatic steatosis. 7. Gastroesophageal Reflux Disease (Gerd) The patient manages GERD with dietary modifications and reflux precautions. 8. Thyroid Nodule A thyroid ultrasound revealed a 2 mm spongiform nodule on the left thyroid, with follow-up monitoring recommended. Discussion Notes During the visit, we discussed the management of hypercholesterolemia with a focus on dietary changes and exercise to achieve the LDL goal. We also reviewed the importance of regular colonoscopy screenings due to the history of tubular adenoma. The patient was advised to continue monitoring bone density for osteoporosis and to manage insomnia and anxiety with current medications while addressing stressors. We discussed the management of hepatic steatosis and GERD through dietary modifications. The thyroid nodule will be monitored with follow- up imaging as needed. Preventative care measures, including maintaining an up-to-date mammogram, were also emphasized. Patient Instructions - Continue dietary modifications and regular exercise to manage cholesterol levels. - Schedule regular colonoscopy screenings. - Monitor bone density regularly. - Manage stress and consider alternative sleep aids if necessary. - Follow a low-fat diet to manage hepatic steatosis and GERD. - Monitor thyroid nodule with follow-up imaging as recommended. - Ensure mammogram remains up to date. Medications: New [BI-EST progesterone/testosterone cream] Apply 2 clicks topically twice a day 6 mg/100 mg/1mg/ml; 1 ea 6RF Changed From eszopiclone (Lunesta) 3 mg PO BEDTIME 30 days 30 tabs 0RF G47.00 - Insomnia, unspecified To eszopiclone (Lunesta) 3 mg PO BEDTIME 90 tabs 0RF 90 days G47.00 - Insomnia, unspecified Refilled fluticasone propionate 50 mcg/actuation (Flonase Allergy Relief) administer into each nostril 2 sprays intranasal DAILY 16 grams 4RF alprazolam 0.25 mg PO DAILY 30 tabs 0RF F41.1 - Generalized anxiety disorder dicyclomine 10 mg PO TID 30 caps 0RF fluconazole 150 mg PO Q3D 2 tabs 3RF 2 doses
--- OUTSIDE RECORDS SUMMARY | 2024-11-14 13:26 | XMS_ITS | Encounter Summary ---
Author Organization [facility] Address [address] [place] [address] Phone Care Team Providers Care Trailer Park Manager Name Role Phone Nathanael Moreno MD Primary Care Provider [phone] Encounter Details Date Type Department Care Team ([facility] st Contact Info) Description 08/01/2022 Procedure Pass OR Admitting Dept - Virtual Department [address] [place] [address] Social History Tobacco Use Types Packs/Day Years Used Date Smoking Tobacco: Former Smokeless Tobacco: Never Comments:quit 15 years ago Alcohol Use Standard Drinks/Week Comments Yes 4 (1 standard drink = 0.6 oz pur e alcohol) Education Answer Date Recorded Are you interested in more education? Not on vinod e 06/06/2022 Are you concerned about learning? Not on file 06/06/2022 No 06/06/2022 No 06/06/2022 Digital Access Answer Date Recorded No 07/07/2022 No 07/07/2022 Reliable internet access at home? Not on file 07/07/2022 Device with a working camera? Not on file Comments No Sex and Gender Information Value Date Recorded Sex Assigned at Female 12/27/2019 2:52 PM EST Legal Sex Female 10:01 PM EDT Gender Identity Female 12/27/2019 2:52 PM EST Sexual Orientation Straight 12/27/2019 2: 52 PM EST documented as of this encounter Plan of Treatment Not on file documented as of this encounter Visit Diagnoses Not on filedocumented in this encounter Care Teams Trailer Park Manager Relationship Specialty Start Date End Date Nathanael Moreno MD [address] [place] [address] PCP - General 11/24/16 documented as of this encounter Additional Source Comments The information contained in this document represents components of the legal health record. It is not the complete legal health record.[facility]
--- OUTSIDE RECORDS SUMMARY | 2024-11-14 13:26 | XMS_ITS | Encounter Summary ---
Author Organization [facility] Address [address] [place] [address] Phone Care Team Providers Care Medical Director/Head Team Physician Name Role Phone Nathanael Moreno MD Primary Care Provider [phone] Encounter Details Date Type Department Care Team (Latest Contact Info) Description 06/15/2019 Transcribe Orders [facility] [address] [place] [address] Nathanael Moreno MD [address] [place] [address] Obesity, unspecified classification, unspecified obesity type, unspecified whether serious comorbidity present (Primary Dx); Anxiety hyperventilation; Senile arthritis; Benign neoplasm of colon, unspecified part of colon; Degeneration of lumbar intervertebral disc; Right knee pain, unspecified chronicity; Allergic rhinitis, unspecified seasonality, unspecified trigger Social History Tobacco Use Types Packs/Day Years Used Date Smoking Tobacco: Former Smokeless Tobacco: Never Alcohol Use Standard Drinks/Week Comments Yes 2 (1 standard drink = 0.6 oz pur e alcohol) Comments No Sex and Gender Information Value Date Recorded Sex Assigned at Female 12/27/2019 2:52 PM EST Legal Sex Female 10:01 PM EDT Gender Identity Female 12/27/2019 2:52 PM EST Sexual Orientation Straight 12/27/2019 2: 52 PM EST documented as of this encounter Plan of Treatment Not on file documented as of this encounter Results * 25-OH vitamin D (06/15/2019 7:41 AM EDT) 25 OH VIT D (TOTAL) 31 30 - 60 ng/mL [facility] Blood 06/15/2019 7:41 AM EDT 06/15/2019 10:10 AM EDT Nathanael Moreno MD LAB BLOOD ORDERABLES Final Re sult Performing Organization Address [facility] de Phone Number [address] [address] * (ABNORMAL) RBC magnesium (06/15/2019 7:41 AM EDT) RBC Magnesium 6.8(H) 4.0 - 6.4 mg/dL [facility] Comment: (NOTE) THIS RESULT HAS BEEN VERIFIED BY REPEAT ANALYSIS. This test was developed and its analytical performance characteristics have been determined by [employer] [place], [place]. It has not been cleared or approved by the U.S. Food and Drug Administration. This assay has been validated pursuant to the CLIA regulations and is used for clinical purposes. Test performed at [facility]/[address] [id number] Director: TRAVON ALANIS MD,PHD Blood 06/15/2019 7:41 AM EDT 06/15/2019 10:10 AM EDT Nathanael Moreno MD LAB BLOOD ORDERABLES Final Re sult Performing Organization Address [facility] Co de Phone Number [address] [address] * CBC and differential (06/15/2019 7:41 AM EDT) WBC 5.93 4.00 - 11.00 K/uL [facility] Comment:Note Reference Range updates to all CBC and Differential results. RBC 4.64 3.72 - 5.30 M/uL [facility] HGB 14.4 11.4 - 15.9 g/dL [facility] Comment:Note updated Referen ce Ranges for all CBC and Differential results. HCT 41.8 34.2 - 46.8 % [facility] PLT 140 140 - 430 K/uL [facility] MCV 90.1 78.0 - 97.0 fL [facility] MCH 31.0 25.0 - 33.0 pg [facility] MCHC 34.4 32.0 - 36.0 g/dL [facility] RDW 12.7 11.0 - 16.0 % [facility] MPV 12.4 8.4 - 12.8 fl [facility] NRBC 0.00 0 /100 WBCs [facility] ABSOLUTE NRBC 0.00 0 K/uL [facility] DIFF METHOD Auto [facility] NEUTS 53.6 43.0 - 75.0 % [facility] LYMPHS 33.1 18.2 - 47.4 % [facility] MONOS 8.3 4.00 - 11.00 % [facility] EOS 3.4 0.0 - 8.0 % [facility] BASOS 1.3 0.0 - 2.0 % [facility] Granulocytes, immature (%) 0.3 0.0 - 0.9 % [facility] ABSOLUTE NEUTS 3.18 1.80 - 7.70 K/uL [facility] ABSOLUTE LYMPHS 1.96 1.00 - 3.10 K/uL [facility] ABSOLUTE MONOS 0.49 0.20 - 0.80 K/uL [facility] ABSOLUTE EOS 0.20 0.00 - 0.80 K/uL [facility] ABSOLUTE BASOS 0.08 0.00 - 0.09 K/uL [facility] Granulocytes, immature 0.02 0.00 - 0.05 K/uL [facility] Blood 06/15/2019 7:41 AM EDT 06/15/2019 10:10 AM EDT us Nathanael Moreno MD LAB BLOOD ORDERABLES Final Re sult [facility] [address] [place] [address] * Folate (06/15/2019 7:41 AM EDT) FOLIC ACID 13.5 4.2 - 19.9 ng/mL [facility] Blood 06/15/2019 7:41 AM EDT 06/15/2019 10:10 AM EDT us Nathanael Moreno MD LAB BLOOD ORDERABLES Final Re sult Performing Organization Address [facility] Co de Phone Number [address] [address] * Vitamin B12 (06/15/2019 7:41 AM EDT) VITAMIN B12 439 232 - 1,245 pg/mL [facility] Blood 06/15/2019 7:41 AM EDT 06/15/2019 10:10 AM EDT us Nathanael Moreno MD LAB BLOOD ORDERABLES Final Re sult Performing Organization Address [facility] de Phone Number [address] [address] * TSH (06/15/2019 7:41 AM EDT) TSH 2.72 0.27 - 4.20 uIU/mL [facility] Blood 06/15/2019 7:41 AM EDT 06/15/2019 10:10 AM EDT us Nathanael Moreno MD LAB BLOOD ORDERABLES Final Re sult Performing Organization Address [facility] de Phone Number [address] [address] * T4, total (06/15/2019 7:41 AM EDT) THYROXINE 6.7 4.6 - 12.0 ug/dL [facility] Blood 06/15/2019 7:41 AM EDT 06/15/2019 10:10 AM EDT us Nathanael Moreno MD LAB BLOOD ORDERABLES Final Re sult Performing Organization Address [facility]/ZIP Co de Phone Number [address] [address] * (ABNORMAL) Lipid panel (06/15/2019 7:41 AM EDT) HDL 50 mg/dL [facility] Comment: Interpretation <40 mg/dL: Low HDL cholesterol (major risk factor for CHD) Greater than or equal to 60 mg/dL: High HDL cholesterol ( negative risk factor for CHD) HDL - cholesterol is affected by a number of factors, e.g. smoking, excerise, hormones, sex and age. CHOLESTEROL 231 0 - 240 mg/dL [facility] TRIGLYCERIDES 129 30 - 160 mg/dL [facility] LDL 155(H) 50 - 129 mg/dL [facility] Comment: LDL levels in terms of risk for coronary heart disease: <100 mg/dL: Optimal 100-129 mg/dL: Near or above optimal 130-159 mg/dL: Borderline high 160-189 mg/dL: High >190 mg/dL: Very High CARDIAC RISK RATIO 4.6(H) 3.3 - 4.4 C [facility] Blood 06/15/2019 7:41 AM EDT 06/15/2019 10:10 AM EDT Nathanael Moreno MD LAB BLOOD ORDERABLES Final Re sult Performing Organization Address [facility] Co de Phone Number [address] [address] * Magnesium (06/15/2019 7:41 AM EDT) MAGNESIUM 2.1 1.6 - 2.6 mg/dL [facility] Blood 06/15/2019 7:41 AM EDT 06/15/2019 10:10 AM EDT Nathanael Moreno MD LAB BLOOD ORDERABLES Final Re sult Performing Organization Address [facility] Co de Phone Number [address] [address] * (ABNORMAL) Comprehensive metabolic panel (06/15/2019 7:41 AM EDT) SODIUM 140 133 - 146 mmol/L [facility] POTASSIUM 3.9 3.3 - 5.1 mmol/L [facility] CHLORIDE 105 96 - 108 mmol/L [facility] CO2 23 21 - 35 mmol/L [facility] BUN 20(H) 6 - 19 mg/dL [facility] CREATININE 0.80 0.5 - 1.5 mg/dL [facility] GLUCOSE 97 70 - 99 mg/dL [facility] ALBUMIN 4.3 3.9 - 4.8 g/dL [facility] TOTAL PROTEIN 6.8 6.5 - 8.0 g/dL [facility] CALCIUM 9.7 8.4 - 10.3 mg/dL [facility] ALKALINE PHOSPHATASE 46 39 - 117 U/L [facility] TOTAL BILIRUBIN 0.4 0.0 - 1.2 mg/dL [facility] AST 21 0 - 37 U/L [facility] ALT 23 0 - 40 U/L [facility] GLOBULIN 2.5 1 - 4.8 g/dL [facility] EGFR 76 >59 mL/min/1.7 3m2 [facility] Comment:If patient is black, multiply result by 1.159. Estimated glomerular filtration rate calculated using the CKD-EPI equation. ANION GAP 16 10 - 20 mmol/L [facility] Blood 06/15/2019 7:41 AM EDT 06/15/2019 10:10 AM EDT Nathanael Moreno MD LAB BLOOD ORDERABLES Final Re sult [facility] [address] [place] [address] documented in this encounter Visit Diagnoses Diagnosis Obesity, unspecified classification, unspecified obesity type, unspecified whether serious comorbidity present- Primary Anxiety hyperventilation Respiratory malfunction arising from mental factors Senile arthritis Osteoarthrosis, unspecified whether generalized or localized, unspecified site Benign neoplasm of colon, unspecified part of colon Degeneration of lumbar intervertebral disc Degeneration of lumbar or lumbosacral intervertebral disc Right knee pain, unspecified chronicity Allergic rhinitis, unspecified seasonality, unspecified trigger documented in this encounter Additional Health Concerns Infection Onset Date Last Indicated Resolved Time COVID-19 10/29/2019 10/29/2019 11/18/2019 1:23 AM EDT documented as of this encounter Care Teams Medical Director/Head Team Physician Relationship Specialty Start Date End Date Nathanael Moreno MD [address] [place] [address] PCP - General 11/24/16 documented as of this encounter Additional Source Comments The information contained in this document represents components of the legal health record. It is not the complete legal health record.[facility]
--- OUTSIDE RECORDS SUMMARY | 2024-11-14 13:26 | XMS_ITS | Encounter Summary ---
Author Organization [facility] Address [address] [place] [address] Phone Care Team Providers Care Modeling Agent Name Role Phone Nathanael Moreno MD Primary Care Provider [phone] Encounter Details Date Type Department Care Team ([facility] st Contact Info) Description 07/18/2022 Procedure Pass OR Admitting Dept - Virtual Department [address] [place] [address] Social History Tobacco Use Types Packs/Day Years [...] on filedocumented in this encounter Care Teams Modeling Agent Relationship Specialty Start Date End Date Nathanael Moreno MD [address] [place] [address] PCP - General 11/24/16 documented as of this encounter Additional Source Comments The information contained in this document represents components of the legal health record. It is not the complete legal health record.[facility]
--- OUTSIDE RECORDS SUMMARY | 2024-11-14 13:26 | XMS_ITS | Encounter Summary ---
Author Organization [facility] Address [address] [place] [address] [place] [address] Phone Care Team Providers Care Helper Driver Name Role Phone Nathanael Moreno MD Primary Care Provider [phone] Encounter Details Date Type Department Care Team (Latest Contact Info) Description 09/30/2019 Ancillary Orders [facility] [address] [place] [address] Jennie Her PA-C [address] [place] [address] Orthopedics & Sports Medicine, [facility] [place] [address] [email or web address] Bilateral knee pain Social History Tobacco Use Types Packs/Day Years [...] documented as of this encounter Results * XR KNEE 4 OR MORE VIEWS (BILATERAL) (09/30/2019 3:17 PM EDT) Narrative SYSTEMGENERATED, DOCUMENTATION - 09/30/2019 3:18 PM EDT This image report has been auto-finalized and has not been read by a Radiologist. Interpretation has been included in the provider encounter note for this date of service. Jennie Her PA-C IMG XR LOWER EXTREMITY F inal Result documented in this encounter Visit Diagnoses Diagnosis Bilateral knee pain Pain in joint, lower leg Bilateral knee pain Pain in joint, lower leg documented in this encounter Additional Health Concerns Infection Onset Date Last Indicated Resolved Time COVID-19 10/29/2019 10/29/2019 11/18/2019 1:23 AM EDT documented as of this encounter Care Teams Helper Driver Relationship Specialty Start Date End Date Josh, Nathanael Cnonors MD [address] [place] [address] PCP - General 11/24/16 documented as of this encounter Additional Source Comments The information contained in this document represents components of the legal health record. It is not the complete legal health record.[facility]
--- OUTSIDE RECORDS SUMMARY | 2024-11-14 13:26 | XMS_ITS | Encounter Summary ---
Author Organization [facility] Address [address] [place] [address] Phone Care Team Providers Care Cutter Tender Name Role Phone Nathanael Moreno MD Primary Care Provider [phone] Encounter Details Date Type Department Care Team (Late st Contact Info) Description 12/27/2019 Procedure Pass OR Admitting Dept - Virtual Department [address] [place] [address] Social History Tobacco Use Types Packs/Day Years [...] on filedocumented in this encounter Care Teams Cutter Tender Relationship Specialty Start Date End Date Nathanael Moreno MD [address] [place] [address] PCP - General 11/24/16 documented as of this encounter Additional Source Comments The information contained in this document represents components of the legal health record. It is not the complete legal health record.[facility]
--- OUTSIDE RECORDS SUMMARY | 2024-11-14 13:26 | XMS_ITS | Encounter Summary ---
Author Organization [facility] Address [address] [place] [address] [place] [address] Phone Care Team Providers Care Coremaking Supervisor Name Role Phone Nathanael Moreno MD Primary Care Provider [phone] Encounter Details Date Type Department Care Team (Latest Contact Info) Description 11/05/2023 Ancillary Orders [facility] [address] [place] [id number] Jennie Her PA-C [address] [place] [address] Orthopedics & Sports Medicine, [facility] [place] [address] [email or web address] Knee pain (Primary Dx) Social History Tobacco Use Types Packs/Day Years [...] XR KNEE 4 OR MORE VIEWS (BILATERAL) (11/05/2023 11:25 AM EDT) Narrative SYSTEMGENERATED, DOCUMENTATION - 11/05/2023 11:25 AM EDT This image report has been auto-finalized and has not been read by a Radiologist. Interpretation has been included in the provider encounter note for this date of service. Jennie Her PA-C IMG XR LOWER EXTREMITY F inal Result documented in this encounter Visit Diagnoses Diagnosis Knee pain Pain in joint, lower leg Knee pain- Primary Pain in joint, lower leg documented in this encounter Care Teams Coremaking Supervisor Relationship Specialty Start Date End Date Nathanael Moreno MD [address] [place] [address] PCP - General 11/24/16 documented as of this encounter Additional Source Comments The information contained in this document represents components of the legal health record. It is not the complete legal health record.[facility]
--- OUTSIDE RECORDS SUMMARY | 2024-11-14 13:26 | XMS_ITS | Encounter Summary ---
Author Organization [facility] Address [address] [place] [address] [place] [address] Phone Care Team Providers Care Manager Biologics Name Role Phone Nathanael Moreno MD Primary Care Provider [phone] Encounter Details Date Type Department Care Team (Latest Contact Info) Description 09/30/2019 Ancillary Orders [facility] Medicine [address] [place] [address] Jennie Her PA-C [address] [place] [address] Orthopedics & Sports Medicine, [facility] [place] [address] [email or web address] Bilateral knee pain Social History [...] documented as of this encounter Visit Diagnoses Diagnosis Bilateral knee pain Pain in joint, lower leg documented in this encounter Additional Health Concerns Infection Onset Date Last Indicated Resolved Time COVID-19 10/29/2019 10/29/2019 11/18/2019 1:23 AM EDT documented as of this encounter Care Teams Manager Biologics Relationship Specialty Start Date End Date Nathanael Moreno MD [address] [place] [address] [address] [place] [address] PCP - General 11/24/16 documented as of this encounter Additional Source Comments The information contained in this document represents components of the legal health record. It is not the complete legal health record.[facility]
--- OUTSIDE RECORDS SUMMARY | 2024-11-14 13:27 | XMS_ITS | Encounter Summary ---
Author Organization [facility] Address [address] [place] [address] Phone Care Team Providers Care Yarn Weight And Strength Tester Name Role Phone Nathanael Moreno MD Primary Care Provider [phone] Encounter Details Date Type Department Care Team (Latest Contact Info) Description 10/27/2017 Transcribe Orders [facility] [address] [place] [id number] Nathanael Moreno MD [address] [place] [address] Pure hypercholesterolemia (Primary Dx) Social History Tobacco Use Types Packs/Day Years Used Date Smoking Tobacco: Former Smokeless Tobacco: Never Alcohol Use Standard Drinks/Week Comments Yes 0 (1 standard drink = 0.6 oz pur e alcohol) Comments Unknown Sex and Gender Information Value Date Recorded Sex Assigned at Female 12/27/2019 2:52 PM EST Legal Sex Female 10:01 PM EDT Gender Identity Female 12/27/2019 2:52 PM EST Sexual Orientation Straight 12/27/2019 2: 52 PM EST documented as of this encounter Plan of Treatment Not on file documented as of this encounter Results * (ABNORMAL) CBC and differential (10/27/2017 7:49 AM EDT) WBC 6.26 3.40 - 11.20 K/uL [facility] RBC 4.82(H) 3.80 - 4.80 M/uL [facility] HGB 14.7 12.0 - 15.0 g/dL [facility] HCT 43.6 36.0 - 46.0 % [facility] PLT 139 130 - 400 K/uL [facility] MCV 90.5 79.0 - 98.0 fL [facility] MCH 30.5 27.0 - 34.8 pg [facility] MCHC 33.7 31.5 - 36.0 g/dL [facility] RDW 12.5 10.8 - 14.6 % [facility] MPV 12.8(H) 9.4 - 12.4 fl [facility] NRBC 0.00 /100 WBCs [facility] ABSOLUTE NRBC 0.00 K/uL [facility] DIFF METHOD Auto [facility] NEUTS 51.1 45.30 - 77.70 % [facility] LYMPHS 34.2 12.30 - 39.70 % [facility] MONOS 9.6 4.10 - 12.80 % [facility] EOS 3.5 0 - 7.2 % [facility] BASOS 1.4 0 - 2.80 % [facility] Granulocytes, immature (%) 0.2 0.0 - 0.9 % [facility] ABSOLUTE NEUTS 3.20 1.40 - 7.70 K/uL [facility] ABSOLUTE LYMPHS 2.14 0.60 - 3.20 K/uL [facility] ABSOLUTE MONOS 0.60(H) 0.11 - 0.59 K/uL [facility] ABSOLUTE EOS 0.22 0.01 - 0.50 K/uL [facility] ABSOLUTE BASOS 0.09(H) 0.00 - 0.08 K/uL [facility] Granulocytes, immature 0.01 0.00 - 0.05 K/uL [facility] Blood 10/27/2017 7:49 AM EDT 10/27/2017 7:54 AM EDT us Nathanael Moreno MD LAB BLOOD ORDERABLES Final Re sult [facility] [address] [place] [address] * (ABNORMAL) Lipid panel (10/27/2017 7:49 AM EDT) HDL 51 mg/dL [facility] Comment: Interpretation: Risk Level Females Decreased >55mg/dL Average 50-55 mg/dL Increased <50 mg/dL CHOLESTEROL 218 0 - 240 mg/dL [facility] TRIGLYCERIDES 91 30 - 160 mg/dL [facility] LDL 149(H) 50 - 129 mg/dL [facility] Comment: LDL levels in terms of risk for coronary heart disease: <100 mg/dL: Optimal 100-129 mg/dL: Near or above optimal 130-159 mg/dL: Borderline high 160-189 mg/dL: High >190 mg/dL: Very High CARDIAC RISK RATIO 4.3 3.3 - 4.4 C [facility] Blood 10/27/2017 7:49 AM EDT 10/27/2017 7:54 AM EDT us Nathanael Moreno MD LAB BLOOD ORDERABLES Final Re sult [address] [id number] * (ABNORMAL) Comprehensive metabolic panel (10/27/2017 7:49 AM EDT) SODIUM 144 133 - 146 mmol/L [facility] POTASSIUM 4.3 3.3 - 5.1 mmol/L [facility] CHLORIDE 106 96 - 108 mmol/L [facility] CO2 27 21 - 35 mmol/L [facility] BUN 20(H) 6 - 19 mg/dL [facility] CREATININE 0.80 0.5 - 1.5 mg/dL [facility] GLUCOSE 107(H) 70 - 99 mg/dL [facility] ALBUMIN 4.4 3.9 - 4.8 g/dL [facility] TOTAL PROTEIN 6.7 6.5 - 8.0 g/dL [facility] CALCIUM 9.6 8.4 - 10.3 mg/dL [facility] ALKALINE PHOSPHATASE 40 39 - 117 U/L [facility] TOTAL BILIRUBIN 0.6 0.0 - 1.2 mg/dL [facility] AST 15 0 - 37 U/L [facility] ALT 17 0 - 40 U/L [facility] GLOBULIN 2.3 1 - 4.8 g/dL [facility] EGFR 76 >59 mL/min/1.7 3m2 [facility] Comment:If patient is black, multiply result by 1.159. Estimated glomerular filtration rate calculated using the CKD-EPI equation. ANION GAP 15 10 - 20 mmol/L [facility] Blood 10/27/2017 7:49 AM EDT 10/27/2017 7:54 AM EDT Nathanael Moreno MD LAB BLOOD ORDERABLES Final Re sult [facility] [address] [place] [address] documented in this encounter Visit Diagnoses Diagnosis Pure hypercholesterolemia- Primary documented in this encounter Additional Health Concerns Infection Onset Date Last Indicated Resolved Time COVID-19 10/29/2019 10/29/2019 11/18/2019 1:23 AM EDT documented as of this encounter Care Teams Yarn Weight And Strength Tester Relationship Specialty Start Date End Date Nathanael Moreno MD [address] [place] [phone] PCP - General 11/24/16 documented as of this encounter Additional Source Comments The information contained in this document represents components of the legal health record. It is not the complete legal health record.[facility]
--- OUTSIDE RECORDS SUMMARY | 2024-11-14 13:27 | XMS_ITS | Clinical Summary ---
Author Organization [facility] Address [address] [place] [phone] Phone Care Team Providers Care Nurse General Duty Name Role Phone Nathanael Moreno MD Primary Care Provider Allergies Active Allergy Reactions Criticality Noted Date Comments Amoxicillin Itching Low 03/19/2016 Diphenhydramine Hcl 10/19/2019 Tachycardia, very anxious Clams Anaphylaxis High 03/19/2016 Feathers 10/19/2019 Hot and itchy hives Hydromorphone Itching,Hives High 08/21/2017 And very red Latex 06/14/2022 Other reaction(s): lips swell Levofloxacin Hallucinations,Other (See Comments) High 03/19/2016 hallucintations Morphine Sulfate 03/19/2016 Other reaction(s): red and very itchy Succinylcholine Chloride 08/21/2017 Sulfa (Sulfonamide Antibiotics) Hives High 03/19/2016 Other reaction(s): Unknown Medications cetirizine (ZYRTEC) 10 MG tablet Take 10 mg by mouth daily. Active eszopiclone (LUNESTA) 2 MG Tab Take 2 mg by mouth nightly at bedtime. at bedtime. 08/20/2021 Active dicyclomine (BENTYL) 10 MG capsule Take 10 mg by mouth 3 (three) times a day. 08/05/2024 Active clotrimazole-be tamethasone (LOTRISONE) cream APPLY TO THE AFFECTED AREA NEEDED FOR FLARES 08/31/2024 Active ALPRAZolam (XANAX) 0.25 MG tablet Take 1 tablet by mouth every morning. 07/18/2024 Active ibuprofen (ADVIL,MOTRIN) 800 MG tablet Take 800 mg by mouth every 6 (six) hours as needed for pain (specific location in comments). Active Hospital, Clinic, or Other Facility Administered Medication Ordered Dose Route Frequency Start Date End Date Status lidocaine (XYLOCAINE) 1% injection 1 mL 1 mL See Adm Inst See admin instructions 10/01/2021 Active triamcinolone acetonide (KENALOG-40) 40 mg/mL injection 40 mg 40 mg See Adm Inst See admin instructions 10/01/2021 Active Active Problems Problem Noted Date Diagnosed Date Primary osteoarthritis of both knees 06/14/2022 06/14/2022 Osteopenia 06/14/2022 06/14/2022 Ingrown nail 09/25/2020 Vulvar atrophy 02/09/2020 Assessment & Plan (02/09/2020 2:34 PM EST): - Md burt assessed area with this provider - Suggested to use topical over the counter steroid cream for 2-4 weeks - Cannot exclude Lichen at this time but giving the sudden onset not likely. - If no relief w/ steroid cream call back. Could try topical estrogen cream for short term use - Call back w/ worsening signs and symptoms History of total knee arthroplasty, right 2019 Primary osteoarthritis of right knee Encounters Date Type Department Care Team Description 09/09/2024 1:40 PM EDT Office Visit [facility] [address] [place] [address] Jennie Her, PABertrandC Chronic pain of left knee (Primary Dx) 09/09/2024 11:30 AM EDT Office Visit [facility] at [address] [address] Sanjuana Aguirre CNP Acute upper respiratory infection (Primary Dx); Right otitis media, unspecified otitis media type from Last 3 Months Immunizations Immunization Administration Dates Next Due COVID-19 (Pre-12/01) Moderna Vaccine, Bivalent 6 mo+ 12/24/2020 COVID-19 (Pre) Moderna Vaccine, mRNA, PF 0 05/10/2020,04/12/2020 Tdap 07/12/2015 Family History Medical History Relation Comments CV disease Father Cancer Mother Relation Status Comments Father Mother Social History Tobacco Use Types Packs/Day Years Used Date Smoking Tobacco: Former Smokeless Tobacco: Never Tobacco Cessation:Counseling Given: Not Answered Comments:quit 15 years ago Alcohol Use Standard [...] Orientation Straight 12/27/2019 2: 52 PM EST Last Filed Vital Signs Vital Sign Reading Time Taken Comments Blood Pressure 133/82 09/09/2024 11:48 AM EDT Pulse 76 09/09/2024 11:48 AM EDT Temperature 37.2 C (98.9 F) 09/09/2024 11:48 AM EDT Respiratory Rate 18 09/09/2024 11:48 AM EDT Oxygen Saturation 96% 09/09/2024 11:48 AM EDT Inhaled Oxygen Concentration - - Weight 71.7 kg (158 lb) 08/30/2023 12:46 PM EDT Height 152.4 cm (5') 07/09/2023 1:36 PM EDT Body Mass Index 30.86 07/09/2023 1:36 PM EDT Plan of Treatment Health Maintenance Due Date Last Done Comments DEPRESSION SCREENING 1962 SMOKING Hx and SMOKELESS TOBACCO SCREENING 08/30/1963 HEPATITIS C SCREENING 1968 MAMMOGRAM 1990 COLOGUARD 08/30/1995 COLONOSCOPY 08/30/1995 COLORECTAL CANCER SCREENING 08/30/1995 FIT TEST 08/30/1995 FOBT 08/30/1995 SIGMOIDOSCOPY 08/30/1995 VIRTUAL COLONOSCOPY 08/30/1995 PNEUMOCOCCAL VACCINES (50+ years) (1 of 1 - PCV) 2000 ZOSTER VACCINES (1 of 2) 2000 OSTEOPOROSIS SCREENING INITI AL (ONE-TIME) 08/30/2015 LIPID PANEL 06/14/2024 06/15/2019, 06/15/2019, 10/27/2017 INFLUENZA VACCINE (#1) 2024 COVID-19 VACCINE (4 - 2024-2 6 season) 2024 12/24/2020, 05/10/2020, 04/12/2020 Adult Td,Tdap Booster 07/11/2025 07/12/2015 RSV VACCINE (1 - 1-dose 75+ series) 2025 HEPATITIS A VACCINES Aged Out No long er eligible based on patient's age to complete this topic HIB VACCINES Aged Out No longer eligi ble based on patient's age to complete this topic MENINGOCOCCAL VACCINES (ACWY) Aged Out No longer eligible based on patient's age to complete this topic MENINGOCOCCAL VACCINES (B) Aged Out N o longer eligible based on patient's age to complete this topic Medical Devices Implanted Type Area Director Gift Device Identifier Shelf Expiration Date Model / Serial / Lot Cement Bone Biomet Standard R 1x40 Us - [id number] Implanted:Qty: 2 on 12/27/2019 by Herve Reich MD at [facility] Right: Knee BRENDA / [employer] 02/09/2024 [id number] / / [id number] Procedures Procedure Name Priority Date/Time Associated Diagnosis Comments POCT COVID-19 RT-PCR/INFLUENZA A & B/RSV CEPHEID Routine 09/09/2024 11:54 AM EDT LIPID PANEL Routine 06/15/2019 7:41 AM EDT Obesity, unspecified classification, unspecified obesity type, unspecified whether serious comorbidity present Anxiety hyperventilation Senile arthritis Benign neoplasm of colon, unspecified part of colon Degeneration of lumbar intervertebral disc Right knee pain, unspecified chronicity Allergic rhinitis, unspecified seasonality, unspecified trigger from Last 3 Months or Most Recently Relevant to Health Maintenance Results * POCT COVID-19 RT-PCR/Influenza A & B/RSV (Cepheid) (09/09/2024 11:54 AM EDT) RSV PCR Negative Negative [facility] SARS-CoV-2 (COVID-19) Negative Negative [facility] POC Influenza A PCR Negative Negative [facility] Influenza B PCR Negative Negative [facility] 09/09/2024 11:5 4 AM EDT 09/09/2024 12:34 PM EDT us Sanjuana Aguirre [facility] POINT OF CARE TEST ORDE AMOL Final Result [facility] [address] [address], [facility] [phone] * (ABNORMAL) Lipid panel (06/15/2019 7:41 AM [...] RISK RATIO 4.6(H) 3.3 - 4.4 C [facility] Blood 06/15/2019 7:41 AM EDT 06/15/2019 10:10 AM EDT us Nathanael Moreno MD LAB BLOOD ORDERABLES Final Re sult [address] [address] from Last 3 Months or Most Recently Relevant to Health Maintenance Insurance MEDICARE PART A & B [facility] MEDICARE POS PPO REPLACEMENT MEDICARE PART A & B [employer] MED[employer] POS PPO REPLACEMENT MEDICARE PART A & B Member Subscriber Plan / Payer (Ef fective 2015-) Name:Janis Mayorga Member ID:[id number] Relation to Subscriber:Self Name:Janis Mayorga Subscriber ID:[id number] Payer ID:[id number] Group ID:Not on file Type:Medicare Address: [employer] [address] [employer] [place] MEDIC[employer] POS PPO REPLACEMENT MEDICARE PART A & B Member Subscriber Plan / Payer (Ef fective 2015-) Name:Janis Mayorga Member ID:[id number] Relation to Subscriber:Self Name:Janis Mayorga Subscriber ID:[id number] Payer ID:[id number] Group ID:Not on file Type:Medicare Address: [employer] [address] [place] [id number] [employer] [place] MEDIC[place] POS PPO REPLACEMENT [employer] [place] MEDIC[place] POS PPO REPLACEMENT MEDICARE PART A & B [employer] [place] MEDIC[employer] POS PPO REPLACEMENT Advance Directives For more information, please contact: [phone] (9AM - 5PM [facility], Thursday-Thursday) Documents on File Type Date Recorded Patient Belly Dancer Expl anation Healthcare Proxy 12/30/2019 8:52 AM * Full Code (Latest Code Status on File) Date Activated Date Inactivated Comments 12/27/2019 2:43 PM Question Answer Comments Code Status Confirmed With: Patient Code Status Communicated To: Inpatient Attending * Full Code (Presumed) Date Activated Date Inactivated Comments 12/27/2019 7:53 AM 12/27/2019 2:43 PM Care Teams Nurse General Duty Relationship Specialty Start Date End Date PoNathanael MD [address] [place] [phone] PCP - General 11/24/16 Additional Source Comments The information contained in this document represents components of the legal health record. It is not the complete legal health record.[facility]
--- OUTSIDE RECORDS SUMMARY | 2024-11-14 13:27 | XMS_ITS | Patient Health Record ---
Author Organization [facility] Address [address] [place] [phone] Care Team Providers Care Ice Skating Instructor Name Role Phone Fausto Brown Unavailable [phone] Reason For Referral No Information Plan Of Treatment No Information
== END 2024-11-14 11:59 | disposition home or self-care (01) ==
LOC: HO.HMCH 11:02
PROVIDERS: PCP Internal Medicine; Visit Provider Internal Medicine
DX: E78.00 Pure hypercholesterolemia, unspecified (principal); R73.02 Impaired glucose tolerance (oral); E66.9 Obesity, unspecified; Z68.30 Body mass index [BMI] 30.0-30.9, adult; K21.9 Gastro-esophageal reflux disease without esophagitis; K76.0 Fatty (change of) liver, not elsewhere classified; D12.6 Benign neoplasm of colon, unspecified; G47.00 Insomnia, unspecified; F41.1 Generalized anxiety disorder

== ENCOUNTER → 2024-11-14 11:01 | Outpatient (BNVA) | payer MEDICARE, SELFPAY | PROVIDERS: PCP Internal Medicine; Visit Provider Internal Medicine | DX: K21.9 Gastro-esophageal reflux disease without esophagitis (principal); E78.00 Pure hypercholesterolemia, unspecified; R73.02 Impaired glucose tolerance (oral); E66.9 Obesity, unspecified; K76.0 Fatty (change of) liver, not elsewhere classified; D12.6 Benign neoplasm of colon, unspecified; G47.00 Insomnia, unspecified; F41.1 Generalized anxiety disorder; M81.0 Age-related osteoporosis without current pathological fracture; E04.1 Nontoxic single thyroid nodule | CPT/HCPCS: 99212 ==